=== PATIENT | female | born 1955 | race African-American/Black ===

== ENCOUNTER 2017-04-22 21:53 | Inpatient (IN) | payer OTHER ==
[2017-04-22] VITALS (8 sets, daily range): BP systolic 149–189; BP diastolic 70–128; PULSE 78–87; RESP 16–20; TEMP 97.7; O2SAT 95–100
[~2017-04-22 21:53] MED LIST: ALBU6.7H INH; ASPI81 PO; ATOR20TA42 PO; CETI5TAB2 PO; CROM5.2S; D32000TA PO; HYDR-2768 PO; HYDR-3533 PO; ISOS30TA3 PO; KCL20 PO; NITR0.4S SL; PULM200A INH; TAB-TAB PO; VERA120T3 PO; ZOFR4TAB3 SL
[2017-04-22] MEDS ORDERED: IOHEXOL 350 MG/ML 10 ML VIAL (for RAD DIAG) IVCONTRAST ONE (21:54)
[2017-04-22] MEDS ORDERED: SODIUM CHLOR 0.9% 1000 ML INJ 1,000 ML IV ONE (22:10)
[2017-04-22] MEDS ORDERED: POTA-163 PO (22:15)
[2017-04-22] MEDS ORDERED: VERA1CAP PO (22:15)
[2017-04-22] MEDS ORDERED: PULM90IN INH (22:15)
[2017-04-22] MEDS ORDERED: NITR0.4S SL (22:15)
[2017-04-22] MEDS ORDERED: ATOR20TA15 PO (22:15)
[2017-04-22] MEDS ORDERED: HYDR25TA5 PO (22:15)
[2017-04-22] MEDS ORDERED: ISOS30TA3 PO (22:15)
[2017-04-22] MEDS ORDERED: ALBUAER3 INH (22:15)
[2017-04-22] MEDS ORDERED: CHOL5000 PO (22:18)
[2017-04-22] MEDS ORDERED: ASPI81CH37 CHEW (22:18)
[2017-04-22] MEDS ORDERED: MULTTAB67 PO (22:18)
[2017-04-22] MEDS ORDERED: LORA1CHW CHEW (22:18)
--- NOTE | 2017-04-22 22:19 | PD ---
HPI Chief Complaint: Neuro Symptoms/ Deficits Time Seen by Provider: 22:04 Travel History International Travel<30 days: No Contact w/Intl Traveler<30days: No Traveled to known affect area: No History of Present Illness HPI The patient is a 61 year old female who presents to the [facility] [address] emergency department with a history of sudden onset of neurologic symptoms that began at 9:30 PM today. The patient's son accompanies her to this emergency department visit and reports that around 9:30 PM she began to have difficulty speaking, tingling in the left side of her face and left upper and left lower extremity weakness. She denies any prior history of stroke. She denies taking any blood thinners other than a low-dose aspirin daily. She did take her low- dose aspirin today. She denies having any changes in her blood pressure medication. She has been taking her blood pressure medication on a regular basis. She denies any history of irregular heartbeat or atrial fibrillation. On review of systems otherwise, the patient denies any recent fevers, cough, congestion, neck pain, chest pain, shortness of breath, abdominal pain, vomiting , diarrhea, urinary symptoms, vision changes, or difficulty with word finding ability. [facility] Past Medical History Narrative Medical The patient's past medical history is significant for coronary artery vasospasm , hyperlipidemia, hypertension, arthritis, asthma. Arthritis: Yes Asthma: Yes Heart Rhythm Problems: Yes Cardiac Catheterization: Yes (2002) Cardiovascular Problems: Yes (spasm) High Cholesterol: Yes Diminished Hearing: No Hypertension: Yes Respiratory: Yes (asthma) ?: Unknown Menopausal: Yes Past Surgical History Narrative Surgical The patient's past surgical history is significant for a hysterectomy. Hysterectomy: Yes Tonsillectomy: Yes Social History Alcohol Use: Yes ([facility]) Tobacco Use: No Substance Use: No Allergies-Medications (Allergen,Severity, Reaction): Coded Allergies: hydrocodone (Unverified Allergy, Intermediate, Nausea/Vomiting, 04/22/17) isosorbide (Unverified Allergy, Unknown, 04/22/17) DENIES naproxen (Unverified Allergy, Unknown, UNKNOWN, PT FORGETS, 04/22/17) Reported Meds & Prescriptions Reported Meds & Active Scripts Active Reported Claritin (Loratadine) 5 Mg Chew 5 Mg CHEW DAILY PRN Aspirin Low Dose (Aspirin) 81 Mg Chew 81 Mg CHEW DAILY Vitamin D3 (Cholecalciferol) 5,000 Unit Cap 5,000 Units PO DAILY Multiple Vitamin 1 Tab 1 Tab PO DAILY Proair Hfa 8.5 GM Inh (Albuterol Sulfate) 90 Mcg/Act Aer 2 Puff INH Q4-6H PRN 108 mcg/actuation Pulmicort Flexhaler (Budesonide Powder Inh) 90 Mcg/Act Inhp 90 Mcg INH Q12HR Nitrostat SL (Nitroglycerin) 0.4 Mg Subl 0.4 Mg SL DIRECTED PRN 1 tablet under the tongue as needed for chest pain. Repeat every 5 minutes for a total of 3 DOSES or call 911 if NO relief. Isosorbide Mononitrate ER (Isosorbide Mononitrate) 30 Mg Luc 30 Mg PO DAILY Potassium Chloride ER (Potassium Chloride) 20 Meq Tab 20 Meq PO BID Hydrochlorothiazide 25 Mg Tab 25 Mg PO DAILY Atorvastatin (Atorvastatin Calcium) 20 Mg Tab 20 Mg PO HS Verelan PM 24 HR (Verapamil HCl) 100 Mg Cap 180 Mg PO HS Review of Systems Except as stated in HPI: all other systems reviewed are Neg General / Constitutional: No: Fever Eyes: No: Visual changes HENT: No: Headaches Cardiovascular: No: Chest Pain or Discomfort Respiratory: No: Shortness of Breath Gastrointestinal: No: Abdominal Pain Genitourinary: No: Dysuria Musculoskeletal: No: Pain Skin: No Rash Neurologic: Positive: Weakness, Focal Abnormalities, Slurred Speech, Sensory Disturbance, No: Change in Mentation Psychiatric: No: Depression Endocrine: No: Polydipsia Hematologic/Lymphatic: No: Easy Bruising Physical Exam Narrative General: The patient is a well-developed well-nourished female in no acute distress. Head and Neck exam: Head is normocephalic atraumatic. Eyes: EOMI, pupils are equal round and reactive to light. Nose: Midline septum with pink mucous membranes Mouth: Dentition unremarkable. Moist mucus membranes. Posterior oropharynx is not erythematous. No tonsillar hypertrophy. Uvula midline. Airway patent. Neck: No palpable lymphadenopathy. No nuchal rigidity. No thyromegaly. Cardiovascular: Regular rate and rhythm without murmurs, gallops, or rubs. No pulse deficit to the extremities on simultaneous auscultation and palpation of her radial artery. Lungs: Clear to auscultation bilaterally. No wheezes, rhonchi, or rales. Abdomen: Soft, without tenderness to palpation in all 4 quadrants of the abdomen. No guarding, rebound, or rigidity. Normal bowel sounds are audible. No tenderness on palpation of McBurney's point. Extremities: No clubbing, cyanosis, or edema. 2+ pulses in all 4 extremities. No calf tenderness on palpation. Back: No costovertebral angle tenderness to palpation. Neurologic Exam: No visual field deficits. The patient has no difficulty naming various objects around the room although she does experience slurred speech. She has a mild left-sided facial droop. She has strength on examination of the left upper extremity that is 4 over 5, left lower extremity is 3 over 5. The patient reports having diminished sensation on palpation of the left side of her face, left upper and left lower extremity. The patient is oriented to person, place, time, and situation. The patient is able to easily follow commands. Skin Exam: No rash noted. Intact skin that is warm and dry. Data Data Last Documented VS Vital Signs Date Time Temp Pulse Resp B/P (MAP) Pulse Ox O2 Delivery O2 Flow Rate FiO2 04/22/17 23:30 87 149/70 (96) 100 Nasal Cannula 2.00 04/22/17 23:15 16 04/22/17 22:[address] Brain W/O Iv Contrast(Rout) (04/22/17 ) Diet Npo (04/23/17 Breakfast) Activity Bed Rest (04/22/17 ) Electrocardiogram (04/22/17 ) I-Stat Creatinine (04/22/17 22:10) I-Stat Profile (04/22/17 22:10) Prothrombin Time / Inr (Pt) (04/22/17 22:10) Act Partial Throm Time (Ptt) (04/22/17 22:10) Complete Blood Count With Diff (04/22/17 22:10) Fibrinogen (04/22/17 22:10) Creatine Kinase (Cpk) (04/22/17 22:10) Troponin I (04/22/17 22:10) Ua Includes Microscopic (04/22/17 22:10) Drug Screen, Random Urine (04/22/17 22:10) Type And Screen (04/22/17 22:10) Cta Brain W Iv Contrast W 3d (04/22/17 22:10) Cta Neck W Iv Contrast W 3d (04/22/17 22:10) Consult Neurology (04/22/17 ) Blood Glucose (04/22/17 22:10) Ecg Monitoring (04/22/17 22:10) Neuro Checks Q2HX12,Q4H (04/22/17 22:10) Nursing Bedside Swallow Assess .ONCE (04/22/17 22:10) Iv Access Insert/Monitor (04/22/17 22:10) NPO (04/22/17 22:10) Oximetry (04/22/17 22:10) Oxygen Administration (04/22/17 22:10) Sodium Chlor 0.9% 1000 Ml Inj (Ns 1000 M (04/22/17 22:10) Resp Oxygen Nathan C Titrat 1-4 L (04/22/17 22:10) Cath For Specimen (04/22/17 22:10) Nicardipine Inj (Cardene Inj) (04/22/17 22:30) Mri Brain W&W/O Contrast (04/22/17 ) Echo 2d Comp With Doppler (04/22/17 ) Lipid Profile (04/22/17 23:17) Ct Brain W/O Iv Contrast(Rout) (04/23/17 23:00) Iohexol 350 Inj (Omnipaque 350 Inj) (04/22/17 21:54) Admit Order (Ed Use Only) (04/22/17 23:41) Labs Laboratory Tests Test 04/22/17 22:10 04/22/17 23:00 White Blood Count 9.2 TH/MM3 Red Blood Count 4.45 MIL/MM3 Hemoglobin 13.5 GM/DL Bedside Hemoglobin 13.9 G/DL Hematocrit 40.6 % Bedside Hematocrit 41.0 % Mean Corpuscular Volume 91.2 FL Mean Corpuscular Hemoglobin 30.4 PG Mean Corpuscular Hemoglobin Concent 33.3 % Red Cell Distribution Width 15.5 % Platelet Count 207 TH/MM3 Mean Platelet Volume 9.1 FL Neutrophils (%) (Auto) 53.2 % Lymphocytes (%) (Auto) 18.7 % Monocytes (%) (Auto) 7.8 % Eosinophils (%) (Auto) 19.7 % Basophils (%) (Auto) 0.6 % Neutrophils # (Auto) 4.9 TH/MM3 Lymphocytes # (Auto) 1.7 TH/MM3 Monocytes # (Auto) 0.7 TH/MM3 Eosinophils # (Auto) 1.8 TH/MM3 Basophils # (Auto) 0.1 TH/MM3 CBC Comment DIFF FINAL Differential Comment Prothrombin Time 11.0 SEC Prothromb Time International Ratio 1.0 RATIO Activated Partial Thromboplast Time 29.9 SEC Fibrinogen 420 mg/dL Bedside Sodium 142 MMOL/L Bedside Potassium 3.4 MMOL/L Bedside Chloride 103 MMOL/L Bedside Blood Urea Nitrogen 12 MG/DL Bedside Creatinine 0.8 MG/DL Bedside Glucose 111 MG/DL Total Creatine Kinase 187 U/L Troponin I LESS THAN 0.02 NG/ML Triglycerides Level 148 MG/DL Cholesterol Level 132 MG/DL LDL Cholesterol 49 MG/DL HDL Cholesterol 53.2 MG/DL Cholesterol/HDL Ratio 2.48 RATIO Urine Color LIGHT-YELLOW Urine Turbidity HAZY Urine pH 8.0 Urine Specific [place] 1.012 Urine Protein NEG mg/dL Urine Glucose (UA) NEG mg/dL Urine Ketones NEG mg/dL Urine Occult Blood NEG Urine Nitrite NEG Urine Bilirubin NEG Urine Urobilinogen LESS THAN 2.0 MG/DL Urine Leukocyte Esterase NEG Urine RBC 1 /hpf Urine WBC LESS THAN 1 /hpf Urine Amorphous Sediment RARE Urine Opiates Screen NEG Urine Barbiturates Screen NEG Urine Amphetamines Screen NEG Urine Benzodiazepines Screen NEG Urine Cocaine Screen NEG Urine Cannabinoids Screen NEG MDM Medical Screen Exam Complete: Yes Emergency Medical Condition: Yes Medical Record Reviewed: Yes EKG Prior to Arrival: Yes Differential Diagnosis Ischemic stroke, versus hemorrhagic stroke, versus intracranial mass, versus hypoglycemia Narrative Course During the course of the patients emergency department visit, the patients history, examination, and differential diagnosis were reviewed with the patient. The patient had IV access obtained and blood work sent for analysis. The patient was placed on a bus monitor with oximetry and blood pressure monitoring. An ECG was done on arrival. The patient's ECG shows a sinus rhythm heart rate of 84, no acute ST segment elevation. A stroke alert was called. I spoke to Dr. Tom regarding this patient's case. He agreed that the patient was a candidate for TPA. While in the family Dr. Tom I did receive a phone call back from the radiologist who is in the process of reading the patient's initial CT. He reports that the CT is negative for acute hemorrhage. The patient will undergo CTA of the head and neck. I then followed the patient down to CT to discuss administration of TPA. The patient was initially provided normal saline at 70 mL per hour. The patient was placed with the head of the bed flat. The patient's initial blood pressure was elevated. The patient will be started on Cardene after further discussion with Dr. Tom. Goals for the patient's blood pressure are to obtain the patient's blood pressure at less than 180/90. Risks and benefits for tPA were discussed with the patient. Risks including hemorrhage, including potentially fatal GI and intracranial bleeding which can result in long-term serious disability or were discussed. Benefits including resolution of symptoms were discussed. The patient consented verbally to proceed with therapy. A Patiño catheter was placed to gravity prior to the patient having tPA administered. The patients laboratory studies were reviewed and remarkable for a white count of 9.2, hemoglobin 13.5, platelets 207 with 19.7 eosinophils, i-STAT reveals a creatinine of 0.8, troponin I is 0.02, CPK 187, PT 11, PTT 29.9, fibrinogen 420 , urine drug screen is negative, urinalysis is unremarkable. Radiology studies were reviewed and remarkable for CT scan of the brain without contrast showed no acute abnormality. CTA of the neck showed a normal examination for a patient of this age according to the reading radiologist, CT a scan of the brain showed a normal examination for a patient of this age. The patients results were discussed with the patient, including the plan of care. I explained that further testing and/ or monitoring is indicated based on the patients history, examination, and/ or laboratory findings. Therefore, I recommended admission for additional evaluation. The patient expressed understanding and was agreeable with this plan. The patient was admitted to the hospital in guarded condition and sent to a bed under the care of the call center assistant service. Critical Care Narrative Aggregate critical care time was 40 minutes. Time to perform other separately billable procedures was not included in the critical care time. My time did not include minutes spent treating any other patients simultaneously or on activities that did not directly contribute to the patient's treatment. The services I provided to this patient were to treat and/or prevent clinically significant deterioration that could result in: Progression of neurologic disability, versus intracranial hemorrhage, versus respiratory failure I provided critical care services requiring my management, as noted below: Chart data review, documentation time, medication orders and management, vital sign assessments/reviewing monitor data, ordering and reviewing lab tests, ordering and interpreting/reviewing x-rays and diagnostic studies, care of the patient and discussion of the patient with the admitting physicians. Stroke Alert NIHSS NIH Stroke Scale Result: 6 NIHSS Time Completed: 22:18 Physician Communication Physician Communication The patient's case was discussed with Dr. Tom at approximately 10:22 PM. He agreed the patient was a candidate for TPA. At approximately 10:25 PM, the radiologist informed me that the CT scan of the brain was negative. I discussed with him that we will proceed with a CTA of the neck and a CTA of the brain. The patient's case was also discussed with Dr. Parekh who did agree to admit the patient to the intensive care unit. Diagnosis Diagnosis: Primary Impression: Ischemic stroke Admitting Physician Requests: Admit Barbara Burger MD Apr 22, 2017 22:19
--- NOTE | 2017-04-22 22:24 | RADRPT ---
EXAM DATE/TIME: 04/22/2017 22:14 [facility] COMPARISON: No previous studies available for comparison. INDICATIONS : Stroke Alert. Slurred speech with left sided weakness. RADIATION DOSE: 34.63 CTDIvol (mGy) MEDICAL HISTORY : Hypertension. SURGICAL HISTORY : None. ENCOUNTER: Initial ACUITY: 1 day PAIN SCALE: 0/10 LOCATION: cranial TECHNIQUE: Multiple contiguous axial images were obtained of the head. Using automated exposure control and adj ustment of the mA and/or kV according to patient size, radiation dose was kept as low as reasonably a chievable to obtain optimal diagnostic quality images. DICOM format image data is available electro nically for review and comparison. FINDINGS: CEREBRUM: The ventricles are normal. No evidence of midline shift, mass lesion, hemorrhage or acute infarction . No extra-axial fluid collections are seen. POSTERIOR FOSSA: The cerebellum and brainstem demonstrate no acute finding. The 4th ventricle is midline. The cerebe llopontine angle is unremarkable. EXTRACRANIAL: The visualized sinuses are clear. SKULL: The calvaria is intact. No evidence of skull fracture. CONCLUSION: Negative noncontrast head CT. The above findings were telephoned to Dr. Burger on 04/22/2017 at 10: 21 PM. Bakari Natarajan MD on April 22, 2017 at 22:19 Board Certified Radiologist. This report was verified electronically.
[2017-04-22] MEDS ORDERED: niCARdipine INJ 25 MG in SODIUM CHLOR 0.9% 250 ML INJ 250 ML IV ONE (22:30)
[2017-04-22 22:35] LABS: AUTOMATED NEUTROPHIL # 4.9 TH/MM3 (1.8-7.7); BASOPHIL # 0.1 TH/MM3 (0-0.2); BASOPHIL % 0.6 % (0.0-2.0); EOSINOPHIL # 1.8 TH/MM3 (0-0.4); EOSINOPHIL % 19.7 % (0.0-4.0); HEMATOCRIT 40.6 % (35.0-46.0); HEMO FLAGS DIFF FINAL; LYMPH % 18.7 % (9.0-44.0); LYMPHOCYTE # 1.7 TH/MM3 (1.0-4.8); MEAN CELL VOLUME 91.2 FL (80.0-100.0); MEAN CORPUSCULAR HEMOGLOBIN 30.4 PG (27.0-34.0); MEAN CORPUSCULAR HGB CONC 33.3 % (32.0-36.0); MONO % 7.8 % (0.0-8.0); NEUT % 53.2 % (16.0-70.0); PLATELET COUNT 207 TH/MM3 (150-450); RED BLOOD COUNT 4.45 MIL/MM3 (4.00-5.30); RED CELL DISTRIBUTION WIDTH 15.5 % (11.6-17.2); WHITE BLOOD COUNT 9.2 TH/MM3 (4.0-11.0)
[2017-04-22 22:36] LABS: I-STAT POTASSIUM 3.4 MMOL/L (3.5-4.9); I-STAT SODIUM 142 MMOL/L (138-146)
[2017-04-22 22:49] LABS: APTT (PATIENT) 29.9 SEC (24.3-30.1)
[2017-04-22 23:00] LABS: CREATINE KINASE 187 U/L (26-192)
--- NOTE | 2017-04-22 23:30 | RADRPT ---
EXAM DATE/TIME: 04/22/2017 23:05 [facility] COMPARISON: No previous studies available for comparison. INDICATIONS : Stroke Alert. Slurred speech and left sided weakness. IV CONTRAST: 80 cc Omnipaque 350 (iohexol) IV RADIATION DOSE: 28.11 CTDIvol (mGy) ; Combined studies MEDICAL HISTORY : Hypertension. SURGICAL HISTORY : None. ENCOUNTER: Initial ACUITY: 1 day PAIN SCALE: 0/10 LOCATION: cranial TECHNIQUE: Volumetric scanning was performed using a multi-row detector CT scanner. The data was post processed with a variety of visualization algorithms including full volume maximum intensity projection, multi -planar sliding thin slab reformation, curved planar reformation, and surface rendering techniques. Using automated exposure control and adjustment of the mA and/or kV according to patient size, radiat ion dose was kept as low as reasonably achievable to obtain optimal diagnostic quality images. DICO M format image data is available electronically for review and comparison. FINDINGS: There is excellent visualization of the major intracranial arteries out to the second-order branch ve ssels. There is no evidence for aneurysm, vessel truncation or stenosis, and no evidence for vascula r malformation. CONCLUSION: Normal examination for a patient of this age. Joel Shea MD on April 22, 2017 at 23:23 Board Certified Radiologist. This report was verified electronically.
--- NOTE | 2017-04-22 23:39 | RADRPT ---
EXAM DATE/TIME: 04/22/2017 23:05 [facility] COMPARISON: No previous studies available for comparison. INDICATIONS : Stroke Alert. Slurred speech with left sided weakness. IV CONTRAST: 80 cc Omnipaque 350 (iohexol) IV ; Cumulative dose for multiple exams. RADIATION DOSE: 28.11 CTDIvol (mGy) ; Combined studies MEDICAL HISTORY : Hypertension. SURGICAL HISTORY : None. ENCOUNTER: Initial ACUITY: 1 day PAIN SCALE: 0/10 LOCATION: neck Elevated flow velocities and ICA/CCA ratios have been found to correlate with increased degrees of vessel stenosis, calculated as percentage of diameter relative to a normal segment of distal ICA/CCA. TECHNIQUE: Volumetric scanning was performed using a multirow detector CT scanner. The data was post processed with a variety of visualization algorithms including full-volume maximum intensity projection, multip lanar sliding thin-slab reformation, curved-planar reformation, and surface-rendering techniques. Us ing automated exposure control and adjustment of the mA and/or kV according to patient size, radiatio n dose was kept as low as reasonably achievable to obtain optimal diagnostic quality images. DICOM f ormat image data is available electronically for review and comparison. FINDINGS: AORTIC ARCH: There is a three-vessel origin of the great vessels from the aorta. No evidence of ostial narrowing. RIGHT CAROTID: The common carotid artery is intact. The carotid bulb has a normal configuration without ulceration o r narrowing. The internal carotid artery lumen is smooth without stenosis. The external carotid monico ry is intact. LEFT CAROTID: The common carotid artery is intact. The carotid bulb has a normal configuration without ulceration or narrowing. The internal carotid artery lumen is smooth without stenosis. The external carotid ar harmony is intact. VERTEBRALS: The vertebral arteries have a symmetric diameter. No stenotic lesions are seen. CONCLUSION: Normal examination for a patient of this age. Joel Shea MD on April 22, 2017 at 23:36 Board Certified Radiologist. This report was verified electronically.
[2017-04-22 23:45] LABS: BLOOD, URINE NEG (NEG); GLUCOSE,URINE NEG (NEG); KETONE, URINE NEG (NEG); NITRITE,URINE NEG (NEG); URINE COLOR LIGHT-YELLOW (YELLW/STRAW)
[2017-04-23] VITALS (14 sets, daily range): BP systolic 143–165; BP diastolic 68–78; PULSE 70–88; RESP 12–22; TEMP 97.9–98.8; O2SAT 96–99
[2017-04-23 00:15] LABS: HDL CHOLESTEROL 53.2 MG/DL (40.0-60.0)
--- NOTE | 2017-04-23 00:23 | HHI.HP ---
HPI Service Critical Care Medicine Primary Care Physician Unknown Admission Diagnosis Stroke alert s/p TPA Diagnosis: Travel History International Travel<30 Days: No Contact w/Intl Traveler <30 Da: No Traveled to Known Affected Are: No History of Present Illness 61 yo Right hand dominant AAF with medical history of hypertension and hyperlipidemia who presented to [facility] with acute onset of aphasia, L sided facial tingling, and L hemiparesis at 9:30 pm on 04/22. No fall or seizure. She was on ASA but no anticoagulants. Stroke alert was called. CT brain was negative. NIH stroke score 6. TPA was initiated at 2300 on 04/22. She denies any prior issues with bleeding. TPA has been completed upon my evaluation and patient states her speech and L sided weakness is significantly improved. Denies headache, neck pain, chest pain, GI bleeding, nausea, vomiting, abdominal pain. Remainder review of systems negative Past Family Social History Allergies: Coded Allergies: hydrocodone (Unverified Allergy, Intermediate, Nausea/Vomiting, 04/22/17) isosorbide (Unverified Allergy, Unknown, 04/22/17) DENIES naproxen (Unverified Allergy, Unknown, UNKNOWN, PT FORGETS, 04/22/17) Past Medical History Hypertension Hyperlipidemia Asthma Allergic rhinitis Coronary spasm. Her teacher [facility] is Dr. Cortez. Past Surgical History section 2 Partial hysterectomy Tonsillectomy Cardiac catheterization 02/[address] Cortez. Impression was coronary spasm. Reported Medications Claritin 5 mg by mouth as needed for allergies Albuterol 2 puffs inhaled q4-6hr Atorvastatin 20 mill grams by mouth daily at bedtime Isosorbide mononitrate 30 g by mouth daily Nitroglycerin as needed for chest pain Verapamil 180 mg by mouth daily at bedtime Aspirin 81 mg daily Potassium chloride 20 mEq by mouth twice a day HCTZ 25 mg daily Budesonide 90 g inhaled every 12 hours Vitamin D3 5000 units by mouth daily Multivitamin one by mouth daily Family History There is no family history of stroke Father had a myocardial infarction in his 50s and at age 61 Mother had uterine cancer and at age 92. She had had a 2 vessel CABG Social History Lifetime nonsmoker Drink alcohol occasionally No illicit drug use She has 2 adult children Works as a peer health promoter Physical Exam Vital Signs Vital Signs Date Time Temp Pulse Resp B/P (MAP) Pulse Ox O2 Delivery O2 Flow Rate FiO2 04/23/17 00:00 87 16 143/69 (93) 99 Nasal Cannula 2.00 04/22/17 23:45 82 16 154/78 (103) 99 Nasal Cannula 2.00 04/22/17 23:30 87 149/70 (96) 100 Nasal Cannula 2.00 04/22/17 23:22 Nasal Cannula 2.00 04/22/17 23:22 97 Room Air 04/22/17 23:15 85 16 160/76 (104) 96 Room Air 04/22/17 23:02 96 04/22/17 23:00 84 189/88 (121) 95 Room Air 04/22/17 22:45 84 187/80 04/22/17 22:23 78 16 187/89 (121) 96 Room Air 04/22/17 22:02 97.7 81 20 179/128 (145) 96 Physical Exam GENERAL: Well-nourished, well-developed patient who is laying flat in ED [facility]. SKIN: Warm and dry. HEAD: Atraumatic. Normocephalic. EYES: Pupils equal and round, 3 mm reactive bilaterally. No scleral icterus. No injection or drainage. ENT: No nasal bleeding or discharge. Mucous membranes pink and moist. NECK: Trachea midline. No JVD. CARDIOVASCULAR: Regular rate and rhythm. No murmurs rubs or gallops. RESPIRATORY: No accessory muscle use. Clear to auscultation. Breath sounds equal bilaterally. On 2 L nasal cannula. GASTROINTESTINAL: Abdomen soft, non-tender, nondistended. Bowel sounds present. MUSCULOSKELETAL: Extremities without clubbing, cyanosis, or edema. NEUROLOGICAL: Awake and alert, oriented 4. Speech is a little slow but is not slurred. Normal naming. No facial droop. Normal tongue protrusion. Extraocular movements intact. No obvious cranial nerve deficits. She reports decreased sensation to soft touch in left upper and left lower extremities. Strength 5/5 throughout the right. Strength 4/5 triceps on the left otherwise 5 /5 on LUE. 5/5 L foot plantar/dorsiflexion. 4+/5 L hip flexor and hamstring. Patellar DTRs are 2+ bilaterally. No abnormal response to Babinski. Laboratory Laboratory Tests Test 04/22/17 22:10 04/22/17 23:00 White Blood Count 9.2 Red Blood Count 4.45 Hemoglobin 13.5 Bedside Hemoglobin 13.9 Hematocrit 40.6 Bedside Hematocrit 41.0 Mean Corpuscular Volume 91.2 Mean Corpuscular Hemoglobin 30.4 Mean Corpuscular Hemoglobin Concent 33.3 Red Cell Distribution Width 15.5 Platelet Count 207 Mean Platelet Volume 9.1 Neutrophils (%) (Auto) 53.2 Lymphocytes (%) (Auto) 18.7 Monocytes (%) (Auto) 7.8 Eosinophils (%) (Auto) 19.7 Basophils (%) (Auto) 0.6 Neutrophils # (Auto) 4.9 Lymphocytes # (Auto) 1.7 Monocytes # (Auto) 0.7 Eosinophils # (Auto) 1.8 Basophils # (Auto) 0.1 CBC Comment DIFF FINAL Differential Comment Prothrombin Time 11.0 Prothromb Time International Ratio 1.0 Activated Partial Thromboplast Time 29.9 Fibrinogen 420 Bedside Sodium 142 Bedside Potassium 3.4 Bedside Chloride 103 Bedside Blood Urea Nitrogen 12 Bedside Creatinine 0.8 Bedside Glucose 111 Total Creatine Kinase 187 Troponin I LESS THAN 0.02 Triglycerides Level 148 Cholesterol Level 132 LDL Cholesterol 49 HDL Cholesterol 53.2 Cholesterol/HDL Ratio 2.48 Urine Color LIGHT-YELLOW Urine Turbidity HAZY Urine pH 8.0 Urine Specific [place] 1.012 Urine Protein NEG Urine Glucose (UA) NEG Urine Ketones NEG Urine Occult Blood NEG Urine Nitrite NEG Urine Bilirubin NEG Urine Urobilinogen LESS THAN 2.0 Urine Leukocyte Esterase NEG Urine RBC 1 Urine WBC LESS THAN 1 Urine Amorphous Sediment RARE Urine Opiates Screen NEG Urine Barbiturates Screen NEG Urine Amphetamines Screen NEG Urine Benzodiazepines Screen NEG Urine Cocaine Screen NEG Urine Cannabinoids Screen NEG Result Diagram: 04/22/170 Caprini VTE Risk Assessment Caprini VTE Risk Assessment: Mod/High Risk (score >= 2) VTE Pharm Contraindication: s/p tpa Caprini Risk Assessment Model Point Value = 1 Point Value = 2 Point Value = 3 Point Value = 5 Age 41-60 Minor surgery BMI > 25 kg/m2 Swollen legs Varicose veins or History of unexplained or recurrent spontaneous Oral contraceptives or hormone replacement Sepsis (< 1 month) Serious lung disease, including pneumonia (< 1 month) Abnormal pulmonary function Acute myocardial infarction Congestive heart failure (< 1 month) History of inflammatory bowel disease Medical patient at bed rest Age 61-74 Arthroscopic surgery Major open surgery (> 45 min) Laparoscopic surgery (> 45 min) Malignancy Confined to bed (> 72 hours) Immobilizing plaster cast Central venous access Age >= 75 History of VTE Family history of VTE Factor V Leiden Prothrombin [id number] Lupus anticoagulant Anticardiolipin antibodies Elevated serum homocysteine Heparin-induced thrombocytopenia Other congenital or acquired thrombophilia Stroke (< 1 month) Elective arthroplasty Hip, pelvis, or leg fracture Acute spinal cord injury (< 1 month) Prophylaxis Regimen Total Risk Factor Score Risk Level Prophylaxis Regimen 0-1 Low Early ambulation 2 Moderate Order ONE of the following: *Sequential Compression Device (SCD) *Heparin 5000 units SQ BID 3-4 Higher Order ONE of the following medications: *Heparin 5000 units SQ TID *Enoxaparin/Lovenox 40 mg SQ daily (WT < 150 kg, CrCl > 30 mL/min) *Enoxaparin/Lovenox 30 mg SQ daily (WT < 150 kg, CrCl > 10-29 mL/min) *Enoxaparin/Lovenox 30 mg SQ BID (WT < 150 kg, CrCl > 30 mL/min) AND/OR *Sequential Compression Device (SCD) 5 or more Highest Order ONE of the following medications: *Heparin 5000 units SQ TID (Preferred with Epidurals) *Enoxaparin/Lovenox 40 mg SQ daily (WT < 150 kg, CrCl > 30 mL/min) *Enoxaparin/Lovenox 30 mg SQ daily (WT < 150 kg, CrCl > 10-29 mL/min) *Enoxaparin/Lovenox 30 mg SQ BID (WT < 150 kg, CrCl > 30 mL/min) AND *Sequential Compression Device (SCD) Assessment and Plan Problem List: (1) HTN (hypertension) ICD Code: I10 - Essential (primary) hypertension Status: Chronic (2) HLD (hyperlipidemia) ICD Code: E78.5 - Hyperlipidemia, unspecified Status: Chronic (3) History of coronary vasospasm ICD Code: Z86.79 - Personal history of other diseases of the circulatory system (4) Hypokalemia ICD Code: E87.6 - Hypokalemia Status: Acute (5) Asthma ICD Code: J45.909 - Unspecified asthma, uncomplicated Status: Chronic (6) Ischemic stroke ICD Code: I63.9 - Cerebral infarction, unspecified Status: Acute Assessment and Plan NEURO: Acute ischemic stroke CT brain 04/23 - negative CTA Neck and brain 04/23negative MRI brain pending TPA started 2300 on 04/22 No antiplatelets or anticoagulants for 24 hours. Lipid panel within normal limits. Urine drug screen negative 2-D echo pending Monitor telemetry Neurology following, Dr. Tom. PT and OT consult. RESP: Asthma Allergic rhinitis Albuterol every 2 hours as needed for wheezing. Budesonide 0.5 twice a day CV: Hypertension Hyperlipidemia History of coronary vasospasm with prior negative cardiac catheterization 02/2003 HCTZ 25 mg by mouth daily, atorvastatin 20 mg by mouth daily at bedtime, verapamil 180 mg by mouth daily at bedtime. Hold aspirin 81 mg daily for 24 hours post TPA Monitor blood pressure. Labetalol 10 mg IV every 4 hours as needed for systolic blood pressure greater than 185 or diastolic blood pressure greater than 110. Nicardipine if needed to maintain these BP targets. GI: Nothing by mouth. Bedside swallow eval and will obtain speech therapy consult if needed. FEN/RENAL: Hypokalemia Patiño in place. Monitor intake and output. Monitor electrolytes and replace when indicated. Replace potassium 20 mEq IV now 0.9 NaCl with 20 mEq of KCl per liter at 80 mL per hour I D: Monitor for signs and symptoms of infection HEME: Eosinophilia Monitor for bleeding status post TPA. ENDO: Euglycemic PROPH: SCDs for DVT prophylaxis. No pharmacology DVT prophylaxis for 24 hours after TPA. Famotidine 20 mg IV every 12 hours for stress ulcer prophylaxis. ACCESS: Peripheral IV providing adequate access at this time. Patient and her son were updated at bedside. Questions were answered. Patient will be admitted to [facility] for close hemodynamic monitoring and monitoring for complication of TPA. Level III H&P Charisma Parekh MD Apr 23, 2017 00:22
[2017-04-23] MEDS ORDERED: CHLORHEXIDINE GLUCONATE 2 % 1 PACK (2 CLOTHS) TOP PRN (01:00)
[2017-04-23] MEDS ORDERED: MISCELLANEOUS NURSING INFORMATION XX SCH (01:00)
[2017-04-23] MEDS ORDERED: SODIUM CHLORIDE 0.9% FLUSH 10 ML FLUSH IV FLUSH PRN (01:00)
[2017-04-23] MEDS ORDERED: POTASSIUM CHLOR 20 MEQ PREMIX 100 ML IV ONE (01:00)
[2017-04-23] MEDS ORDERED: ONDANSETRON HCL 4 MG/2 ML VIAL IV PUSH PRN (01:00)
[2017-04-23] MEDS ORDERED: LABETALOL HCL 100 MG/20 ML VIAL IV PUSH PRN (01:15)
[2017-04-23] MEDS ORDERED: niCARdipine INJ 25 MG in SODIUM CHLOR 0.9% 250 ML INJ 240 ML IV PRN (01:15)
[2017-04-23] MEDS: NS + KCL 20 MEQ INJ 1,000 ML IV SCH ×3 (01:53→15:24)
[2017-04-23] MEDS: CHLORHEXIDINE GLUCONATE 2 % 1 PACK (2 CLOTHS) TOP SCH (03:22)
--- NOTE | 2017-04-23 07:26 | MB ---
cc: CHUCKIE THORNTON M.D. DATE OF CONSULTATION 04/22/[address] Burger REASON FOR CONSULTATION Stroke alert HISTORY OF PRESENT ILLNESS Ms. Horne is a 61-year-old woman who was in her usual state of health until 09:30 today when she acutely developed weakness on the left side involving the left arm and left leg. She had tingling on the face as well as the arm and leg as well, difficulty speaking with slurred speech, but not aphasia. She presented to the ER, was very hypertensive initially, NIH stroke scale was 6. PAST MEDICAL HISTORY 1. Hysterectomy 2. Tonsillectomy 3. Hypercholesterolemia 4. Hypertension MEDICATIONS AT HOME 1. Claritin 2. Aspirin 81 mg daily 3. Vitamin D3 4. Multivitamin 5. ProAir inhaler 6. Pulmicort 7. Nitrostat 8. Isosorbide 30 mg daily 9. Potassium chloride 20 mEq b.i.d. 10. Hydrochlorothiazide 25 mg daily 11. Atorvastatin 20 mg daily 12. Verelan 100 mg tablets ALLERGIES HYDROCODONE ISOSORBIDE NEUROLOGIC EXAMINATION Initial blood pressure 179/128. She was placed on a Cardene drip and brought the pressure down to 187/89, pulse 78, she is in sinus rhythm, respirations 16, temperature 97 degrees. Higher cortical function, the patient is alert. Speech is dysarthric. Cranial nerves, slight left facial droop. On motor exam, she is weak in the left arm and left leg rated at about 3/5 for the arm and leg with normal strength on the right. Reflexes are symmetric. CT of the brain, no acute changes present. LABORATORY DATA White count 9200, hemoglobin 13.5, hematocrit 40.6% platelet count 207,000, PT 11, INR 1, APTT 29.9. Sodium is 142, potassium 3.4, chloride 103, BUN is 12, creatinine 0.8, glucose 111, CPK 187. Telemetry, normal sinus rhythm. IMPRESSION Acute right hemisphere stroke. RECOMMENDATIONS The patient is a candidate for IV TPA. I have discussed this with Dr. Burger on the telephone prior to my arrival in the ER and the TPA has already been started. A CT angiogram was obtained as well following starting of the IV TPA. This was done of the head and neck and the results are currently pending. I discussed the case with Dr. Nixon Thomas of interventional radiology who is going to review the CT angiogram as soon as the images are available. We will follow the post TPA protocol as well with no antiplatelets, no anticoagulants for at least 24 hours post TPA. Further evaluation with an MRI and MRA of the brain, echocardiogram and lipid panel will be obtained as well. The patient will be admitted to the ICU for close neurological monitoring. MD DAX Paiz/FLORIDALMA /11:14 PM /7:17 AM
[2017-04-23] MEDS: RESP: ALBUTEROL 2.5 MG/3 ML NEB (PRN) NEB (07:53)
[2017-04-23] MEDS: RESP: BUDESONIDE 0.5 MG/2 ML NEB NEB SCH ×2 (07:53→19:58)
[2017-04-23] MEDS: HYDROCHLOROTHIAZIDE 25 MG TAB PO SCH (08:09)
[2017-04-23] MEDS: FAMOTIDINE 20 MG/2 ML VIAL IV PUSH SCH ×2 (08:49→20:39)
[2017-04-23] MEDS: SODIUM CHLORIDE 0.9% FLUSH 10 ML FLUSH IV FLUSH SCH ×2 (08:50→20:38)
[2017-04-23] MEDS ORDERED: GADODIAMIDE PF 287 MG/ML 20 ML VIAL (for RAD MRI) IV PUSH ONE (11:36)
--- NOTE | 2017-04-23 11:45 | RADRPT ---
EXAM DATE/TIME: 04/23/2017 09:29 [facility] COMPARISON: No previous studies available for comparison. INDICATIONS : Stroke alert. Post TPA. CONTRAST: 20 cc Omniscan (gadodiamide) IV MEDICAL HISTORY : Hypertension. SURGICAL HISTORY : Tonsillectomy. Hysterectomy. section. ENCOUNTER: Subsequent ACUITY: 2 day PAIN SCORE: 0/10 LOCATION: cranial TECHNIQUE: Multiplanar, multisequence MRI of the brain was performed both prior to and following the administrat ion of paramagnetic contrast. FINDINGS: CEREBRUM: The ventricles are normal for age. No evidence of midline shift, mass lesion, hemorrhage or acute in farction. No extraaxial fluid collections are seen. The pituitary gland and suprasellar cistern are normal in configuration. WHITE MATTER: Occasional punctate areas of T2 prolongation in periventricular white matter appear benign. POSTERIOR FOSSA: The cerebellum and brainstem are intact. The 4th ventricle is midline. The cerebellopontine angle is unremarkable. The cerebellar tonsils are normal in position. DIFFUSION IMAGING: No focal areas of restricted diffusion are seen. No evidence of acute infarction. EXTRACRANIAL: The visualized portions of the orbits and paranasal sinuses are unremarkable. POST-CONTRAST: No abnormal areas of parenchymal or dural enhancement. No evidence of blood-brain barrier breakdown. CONCLUSION: No acute intracranial findings Bakari Ortega MD on April 23, 2017 at 11:42 Board Certified Radiologist. This report was verified electronically.
--- NOTE | 2017-04-23 12:20 | EKG ---
Date Performed: 04/23/2017 Time Performed: 08:00:07 PTAGE: 61 years EKG: Sinus rhythm NORMAL ECG PREVIOUS TRACING : 04/22/2017 23.20 T-waves are much flatter from the old tracing. DOCTOR: Franklyn Burger Interpretating Date/Time 04/23/2017 12:19:03
--- NOTE | 2017-04-23 12:21 | EKG ---
Date Performed: 04/22/2017 Time Performed: 23:20:12 PTAGE: 61 years EKG: Sinus rhythm POSSIBLE LEFT ATRIAL ENLARGEMENT NONSPECIFIC T-WAVE ABNORMALITY BORDERLINE ECG PREVIOUS TRACING : 03/29/2015 16.54 T-wave abnormalities resolved from the prior tracing. DOCTOR: Franklyn Burger Interpretating Date/Time 04/23/2017 12:20:58
--- NOTE | 2017-04-23 17:20 | ECHRPT ---
Indication: cva/tia CONCLUSIONS Normal left ventricular size. Wall thickness is normal. [id number] mitral valve regurgitation. There is mild tricuspid valve regurgitation. The pulmonary valve is not well visualized. BP: / HR: Rhythm: MEASUREMENTS (Male / Female) Normal Values Technical Quality:Very technically difficult study 2D ECHO LV Diastolic Diameter PLAX 4.0 cm 4.2 - 5.9 / 3.9 - 5.3 cm LV Systolic Diameter PLAX 2.8 cm IVS Diastolic Thickness 0.9 cm 0.6 - 1.0 / 0.6 - 0.9 cm LVPW Diastolic Thickness 1.0 cm 0.6 - 1.0 / 0.6 - 0.9 cm LV Relative Wall Thickness 0.5 RV Internal Dim ED PLAX 2.3 cm M-MODE Aortic Root Diameter MM 3.0 cm LA Systolic Diameter MM 4.1 cm LA Ao Ratio MM 1.4 AV Cusp Separation MM 1.7 cm DOPPLER Mitral E Point Velocity 82.9 cm/s Mitral A Point Velocity 93.3 cm/s Mitral E to A Ratio 0.9 LV E' Lateral Velocity 6.9 cm/s Mitral E to LV E' Lateral Ratio 12.0 LV E' Septal Velocity 6.1 cm/s Mitral E to LV E' Septal Ratio 13.5 FINDINGS LEFT VENTRICLE The left ventricular systolic function is normal with an estimated ejection fraction in the range of 60-65%. Normal left ventricular size. Wall thickness is normal. RIGHT VENTRICLE Normal right ventricular size and systolic function. LEFT ATRIUM The left atrial size is normal. RIGHT ATRIUM The right atrial size is normal. ATRIAL SEPTUM Normal atrial septal thickness without atrial level shunting by limited color doppler interrogation. AORTA The aortic root and proximal ascending aorta are normal in size on limited imaging. MITRAL VALVE Structurally normal mitral valve. [id number]-[id number] mitral valve regurgitation. AORTIC VALVE Trileaflet aortic valve. No aortic valve stenosis or regurgitation. TRICUSPID VALVE Structurally normal tricuspid valve. There is mild tricuspid valve regurgitation. PULMONARY VALVE The pulmonary valve is not well visualized. VESSELS The inferior vena cava is normal in size. PERICARDIUM No pericardial effusion. Gibran Bello MD, FACC (Electronically Signed) Final Date:23 April 2017 17:18
[2017-04-23] MEDS: ATORVASTATIN 20 MG TAB PO SCH (20:39)
[2017-04-23] MEDS: VERAPAMIL HCL 180 MG SUSTAINED RELEASE TAB PO SCH (20:39)
--- NOTE | 2017-04-23 21:13 | HHI.PR ---
Review/Management Diagnosis right hemisphere stroke--resolved after iv TPA Plan [address] brain tonight start plavix and aspirin in am > 24 hrs post tpa. Diagnosis/Plan: Subjective Subjective Comments No acute events reported feels left sided strength back to normal Active Medications Current Medications Medications (Trade) Dose Ordered Sig/Lyle Route Start Time Stop Time Status Last Admin (NS Flush) 2 ml UNSCH PRN IV FLUSH 04/23/17 01:00 (NS Flush) 2 ml BID IV FLUSH 04/23/17 09:00 04/23/17 20:38 (Pepcid Inj) 20 mg Q12HR IV PUSH 04/23/17 09:00 04/23/17 20:39 (Zofran Inj) 4 mg Q6H PRN IV PUSH 04/23/17 01:00 Miscellaneous Information 1 [id number] XX 04/23/17 01:00 (Chlorhexidine 2% Cloth) 3 pack Taper DAILY@04 TOP 04/23/17 04:00 04/19/18 03:59 (Chlorhexidine 2% Cloth) 3 pack UNSCH PRN TOP 04/23/17 01:00 Potassium Chloride/Sodium Chloride 1,000 ml @ 84 mls/hr [id number] IV 04/23/17 01:00 04/23/17 15:24 (Trandate Inj) 10 mg Q6H PRN IV PUSH 04/23/17 01:15 Nicardipine HCl 25 mg/Sodium Chloride 250 ml @ 50 mls/hr TITRATE PRN IV 04/23/17 01:15 (Albuterol Neb) 2.5 mg Q2HR NEB PRN NEB 04/23/17 01:15 04/23/17 07:53 (Pulmicort Respule Neb) 0.5 mg Q12HR NEB NEB 04/23/17 08:00 04/23/17 19:58 (Lipitor) 20 mg HS PO 04/23/17 21:00 04/23/17 20:39 (Hydrodiuril) 25 mg DAILY PO 04/23/17 09:00 (Isoptin Sr) 180 mg HS PO 04/23/17 21:00 04/23/17 20:39 (Flu (Quadrivalent) Vaccine Inj) 0.5 ml ONCE ONCE IM 04/24/17 10:00 04/24/17 10:01 Allergies Allergies Coded Allergies hydrocodone (Unverified Allergy, Intermediate, Nausea/Vomiting, 04/22/17) isosorbide (Unverified Allergy, Unknown, 04/22/17) naproxen (Unverified Allergy, Unknown, UNKNOWN, PT FORGETS, 04/22/17) Exam I&O / VS 04/23/17 04/23/17 04/24/17 15:00 23:00 07:00 Intake Total 1221 ml Output Total 1200 ml Balance 21 ml Intake Oral 480 ml IV Total 741 ml Output Urine Total 1200 ml Vital Signs Date Time Temp Pulse Resp B/P (MAP) Pulse Ox O2 Delivery O2 Flow Rate FiO2 04/23/17 19:59 96 21 04/23/17 18:00 83 04/23/17 16:00 98.5 80 20 144/68 (93) 99 04/23/17 16:00 80 04/23/17 14:00 81 04/23/17 12:00 98.3 80 19 155/73 (100) 98 04/23/17 12:00 80 04/23/17 10:00 72 04/23/17 08:00 78 04/23/17 08:00 97.9 78 20 152/70 (97) 99 04/23/17 07:57 99 04/23/17 07:00 100 Nasal Cannula 2.00 04/23/17 06:00 70 04/23/17 04:00 98.8 72 13 149/69 (95) 99 04/23/17 04:00 73 04/23/17 01:30 98.3 73 12 144/77 (99) 99 04/23/17 01:30 72 04/23/17 01:15 04/23/17 00:00 87 16 143/69 (93) 99 Nasal Cannula 2.00 04/22/17 23:45 82 16 154/78 (103) 99 Nasal Cannula 2.00 04/22/17 23:30 87 149/70 (96) 100 Nasal Cannula 2.00 04/22/17 23:22 Nasal Cannula 2.00 04/22/17 23:22 97 Room Air 04/22/17 23:15 85 16 160/76 (104) 96 Room Air 04/22/17 23:02 96 04/22/17 23:00 84 189/88 (121) 95 Room Air 04/22/17 22:45 84 187/80 04/22/17 22:23 78 16 187/89 (121) 96 Room Air 04/22/17 22:02 97.7 81 20 179/128 (145) 96 Exam Comments alert, speech normal CN 2-12 normal MOTOR 5/5 BUE and BLE. normal fine motor, no drift. Objective Radiology Results MRI brain normal CTA brain --normal CTA neck-normal Micro and Labs Laboratory Tests Test 04/22/17 22:10 04/22/17 23:00 04/23/17 01:45 White Blood Count 9.2 Red Blood Count 4.45 Hemoglobin 13.5 Bedside Hemoglobin 13.9 Hematocrit 40.6 Bedside Hematocrit 41.0 Mean Corpuscular Volume 91.2 Mean Corpuscular Hemoglobin 30.4 Mean Corpuscular Hemoglobin Concent 33.3 Red Cell Distribution Width 15.5 Platelet Count 207 Mean Platelet Volume 9.1 Neutrophils (%) (Auto) 53.2 Lymphocytes (%) (Auto) 18.7 Monocytes (%) (Auto) 7.8 Eosinophils (%) (Auto) 19.7 Basophils (%) (Auto) 0.6 Neutrophils # (Auto) 4.9 Lymphocytes # (Auto) 1.7 Monocytes # (Auto) 0.7 Eosinophils # (Auto) 1.8 Basophils # (Auto) 0.1 CBC Comment DIFF FINAL Differential Comment Prothrombin Time 11.0 Prothromb Time International Ratio 1.0 Activated Partial Thromboplast Time 29.9 Fibrinogen 420 Bedside Sodium 142 Bedside Potassium 3.4 Bedside Chloride 103 Bedside Blood Urea Nitrogen 12 Bedside Creatinine 0.8 Bedside Glucose 111 Total Creatine Kinase 187 Troponin I LESS THAN 0.02 Triglycerides Level 148 Cholesterol Level 132 LDL Cholesterol 49 HDL Cholesterol 53.2 Cholesterol/HDL Ratio 2.48 Urine Color LIGHT-YELLOW Urine Turbidity HAZY Urine pH 8.0 Urine Specific [place] 1.012 Urine Protein NEG Urine Glucose (UA) NEG Urine Ketones NEG Urine Occult Blood NEG Urine Nitrite NEG Urine Bilirubin NEG Urine Urobilinogen LESS THAN 2.0 Urine Leukocyte Esterase NEG Urine RBC 1 Urine WBC LESS THAN 1 Urine Amorphous Sediment RARE Urine Opiates Screen NEG Urine Barbiturates Screen NEG Urine Amphetamines Screen NEG Urine Benzodiazepines Screen NEG Urine Cocaine Screen NEG Urine Cannabinoids Screen NEG Nasal Screen MRSA (PCR) MRSA NOT DETECTED Simon Tom PhD Apr 23, 2017 21:13
--- NOTE | 2017-04-23 23:27 | RADRPT ---
EXAM DATE/TIME: 04/23/2017 23:12 [facility] COMPARISON: CT BRAIN W/O CONTRAST, April 22, 2017, 22:14. INDICATIONS : Post TPA. RADIATION DOSE: 49.15 CTDIvol (mGy) MEDICAL HISTORY : Hypertension. SURGICAL HISTORY : None. ENCOUNTER: Subsequent ACUITY: 1 day PAIN SCALE: 0/10 LOCATION: cranial TECHNIQUE: Multiple contiguous axial images were obtained of the head. Using automated exposure control and adj ustment of the mA and/or kV according to patient size, radiation dose was kept as low as reasonably a chievable to obtain optimal diagnostic quality images. DICOM format image data is available electro nically for review and comparison. FINDINGS: CEREBRUM: The ventricles are normal for age. No evidence of midline shift, mass lesion, hemorrhage or acute in farction. No extra-axial fluid collections are seen. POSTERIOR FOSSA: The cerebellum and brainstem are intact. The 4th ventricle is midline. The cerebellopontine angle i s unremarkable. EXTRACRANIAL: The visualized portion of the orbits is intact. SKULL: The calvaria is intact. No evidence of skull fracture. CONCLUSION: Normal examination. No significant change has occurred. Joel Shea MD on April 23, 2017 at 23:23 Board Certified Radiologist. This report was verified electronically.
[2017-04-24] VITALS (14 sets, daily range): BP systolic 128–160; BP diastolic 62–87; PULSE 66–106; RESP 12–24; TEMP 97.7–98.5; O2SAT 94–99
[2017-04-24] MEDS: CHLORHEXIDINE GLUCONATE 2 % 1 PACK (2 CLOTHS) TOP SCH (04:00)
[2017-04-24 04:10] LABS: AUTOMATED NEUTROPHIL # 5.6 TH/MM3 (1.8-7.7); BASOPHIL # 0.1 TH/MM3 (0-0.2); BASOPHIL % 0.8 % (0.0-2.0); HEMATOCRIT 39.7 % (35.0-46.0); HEMO FLAGS DIFF FINAL; LYMPHOCYTE # 1.6 TH/MM3 (1.0-4.8); MEAN CELL VOLUME 91.4 FL (80.0-100.0); MEAN CORPUSCULAR HGB CONC 32.8 % (32.0-36.0); MONO % 7.2 % (0.0-8.0); PLATELET COUNT 195 TH/MM3 (150-450); RED BLOOD COUNT 4.34 MIL/MM3 (4.00-5.30); WHITE BLOOD COUNT 8.9 TH/MM3 (4.0-11.0)
[2017-04-24 04:32] LABS: POTASSIUM 3.5 MEQ/L (3.5-5.1)
--- NOTE | 2017-04-24 07:20 | HHI.CCPN ---
Subjective Remarks/Hospital Course 61 yo Right hand dominant AAF with medical history of hypertension and hyperlipidemia who presented to [facility] with acute onset of aphasia, L sided facial tingling, and L hemiparesis at 9:30 pm on 04/22. No fall or seizure. She was on ASA but no anticoagulants. Stroke alert was called. CT brain was negative. NIH stroke score 6. TPA was initiated at 2300 on 04/22. She denies any prior issues with bleeding. TPA has been completed upon my evaluation and patient states her speech and L sided weakness is significantly improved. Denies headache, neck pain, chest pain, GI bleeding, nausea, vomiting, abdominal pain. Remainder review of systems negative. 04/24: Left arm and leg slightly weaker on exam yesterday afternoon. Left hand grasp about 3/5 strength. Protects airway well, swallow evaluation to follow. BP control acceptable. Objective Vital Signs Date Time Temp Pulse Resp B/P (MAP) Pulse Ox O2 Delivery O2 Flow Rate FiO2 04/24/17 06:00 96 04/24/17 04:00 97.7 24 128/70 (89) 97 04/23/17 19:59 21 04/23/17 19:00 Room Air 04/23/17 07:00 2.00 Intake and Output 04/24/17 04/24/17 04/25/17 08:00 16:00 00:00 Intake Total 100 ml Output Total 1300 ml Balance -1200 ml Result Diagram: 04/24/17 0400 04/24/17 0400 Objective Remarks GENERAL: Well-nourished, well-developed patient who is laying flat in ED [facility]. SKIN: Warm and dry. HEAD: Atraumatic. Normocephalic. EYES: Pupils equal and round, 2 mm reactive bilaterally. ENT: No nasal bleeding or discharge. Mucous membranes pink and moist. NECK: Trachea midline. Airway widely patent. CARDIOVASCULAR: Regular rate and rhythm. No murmurs rubs or rubs. No JVD. RESPIRATORY: No accessory muscle use. Clear to auscultation. Breath sounds equal bilaterally. On 2 L nasal cannula. GASTROINTESTINAL: Abdomen soft, non-tender, nondistended. Bowel sounds present. MUSCULOSKELETAL: Extremities without clubbing, cyanosis, or edema. Warm, well perfused. NEUROLOGICAL: Awake and alert, oriented 4. Speech is a little slow, at times unclear. Normal naming. Normal tongue protrusion. 4/5 L foot plantar/ dorsiflexion. 4+/5 L hip flexor and hamstring. Patellar DTRs are 2+ bilaterally. No abnormal response to Babinski. A/P Problem List: (1) HTN (hypertension) ICD Code: I10 - Essential (primary) hypertension Status: Chronic (2) HLD (hyperlipidemia) ICD Code: E78.5 - Hyperlipidemia, unspecified Status: Chronic (3) History of coronary vasospasm ICD Code: Z86.79 - Personal history of other diseases of the circulatory system (4) Hypokalemia ICD Code: E87.6 - Hypokalemia Status: Acute (5) Asthma ICD Code: J45.909 - Unspecified asthma, uncomplicated Status: Chronic (6) Ischemic stroke ICD Code: I63.9 - Cerebral infarction, unspecified Status: Acute Assessment and Plan NEURO: Acute ischemic stroke CT brain 04/23 - negative CTA Neck and brain 04/23negative MRI brain pending TPA started 2300 on 04/22 No antiplatelets or anticoagulants for 24 hours. Lipid panel within normal limits. Urine drug screen negative 2-D echo pending Monitor telemetry Neurology following, Dr. Tom. PT and OT consult. Repeat Head CT today. MRI - no acute injury RESP: Asthma Allergic rhinitis Albuterol every 2 hours as needed for wheezing. Budesonide 0.5 twice a day CV: Hypertension Hyperlipidemia History of coronary vasospasm with prior negative cardiac catheterization 02/2003 HCTZ 25 mg by mouth daily, atorvastatin 20 mg by mouth daily at bedtime, verapamil 180 mg by mouth daily at bedtime. Hold aspirin 81 mg daily for 24 hours post TPA Monitor blood pressure. Labetalol 10 mg IV every 4 hours as needed for systolic blood pressure greater than 185 or diastolic blood pressure greater than 110. Nicardipine if needed to maintain these BP targets. GI: Nothing by mouth. Bedside swallow eval and will obtain speech therapy consult if needed. FEN/RENAL: Hypokalemia Patiño in place. Monitor intake and output. Monitor electrolytes and replace when indicated. Replace potassium 20 mEq IV now 0.9 NaCl with 20 mEq of KCl per liter at 80 mL per hour I D: Monitor for signs and symptoms of infection HEME: Eosinophilia Monitor for bleeding status post TPA. ENDO: Euglycemic PROPH: SCDs for DVT prophylaxis. No pharmacology DVT prophylaxis for 24 hours after TPA. Famotidine 20 mg IV every 12 hours for stress ulcer prophylaxis. ACCESS: Peripheral IV providing adequate access at this time. Patient and her were updated at bedside. Questions were answered. Patient will be admitted to [facility] for close hemodynamic monitoring and monitoring for complication of TPA. Overall impression: Appears to have fixed left sided deficit, mild. Workup continues for etiology. Justin Servin MD Apr 24, 2017 07:20
[2017-04-24] MEDS: RESP: BUDESONIDE 0.5 MG/2 ML NEB NEB SCH ×2 (09:50→20:12)
[2017-04-24] MEDS: RESP: ALBUTEROL 2.5 MG/3 ML NEB (PRN) NEB (09:50)
[2017-04-24] MEDS ORDERED: INFLUENZA VIRUS VACCINE (QUADRIVALENT) 0.5 ML SYR IM ONE (10:00)
[2017-04-24] MEDS: SODIUM CHLORIDE 0.9% FLUSH 10 ML FLUSH IV FLUSH SCH ×2 (10:18→21:00)
[2017-04-24] MEDS: FAMOTIDINE 20 MG/2 ML VIAL IV PUSH SCH ×2 (10:19→21:14)
[2017-04-24] MEDS: CLOPIDOGREL 75 MG TAB PO SCH (10:19)
[2017-04-24] MEDS: ASPIRIN 325 MG TAB PO SCH (10:19)
[2017-04-24] MEDS: HYDROCHLOROTHIAZIDE 25 MG TAB PO SCH (10:20)
[2017-04-24] MEDS: NS + KCL 20 MEQ INJ 1,000 ML IV SCH ×3 (10:20→21:14)
--- NOTE | 2017-04-24 18:39 | HHI.PR ---
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 Diagnosis/Plan: Subjective Subjective Comments No acute events reported feels left sided strength normal Active Medications Current Medications Medications (Trade) Dose Ordered Sig/Llye Route Start Time Stop Time Status Last Admin (NS Flush) 2 ml UNSCH PRN IV FLUSH 04/23/17 01:00 (NS Flush) 2 ml BID IV FLUSH 04/23/17 09:00 04/24/17 10:18 (Pepcid Inj) 20 mg Q12HR IV PUSH 04/23/17 09:00 04/24/17 10:19 (Zofran Inj) 4 mg Q6H PRN IV PUSH 04/23/17 01:00 Miscellaneous Information 1 Q361D XX 04/23/17 01:00 (Chlorhexidine 2% Cloth) 3 pack Taper DAILY@04 TOP 04/23/17 04:00 04/19/18 03:59 (Chlorhexidine 2% Cloth) 3 pack UNSCH PRN TOP 04/23/17 01:00 Potassium Chloride/Sodium Chloride 1,000 ml @ 84 mls/hr [id number] IV 04/23/17 01:00 04/24/17 12:45 (Trandate Inj) 10 mg Q6H PRN IV PUSH 04/23/17 01:15 Nicardipine HCl 25 mg/Sodium Chloride 250 ml @ 50 mls/hr TITRATE PRN IV 04/23/17 01:15 (Albuterol Neb) 2.5 mg Q2HR NEB PRN NEB 04/23/17 01:15 04/24/17 09:50 (Pulmicort Respule Neb) 0.5 mg Q12HR NEB NEB 04/23/17 08:00 04/24/17 09:50 (Lipitor) 20 mg HS PO 04/23/17 21:00 04/23/17 20:39 (Hydrodiuril) 25 mg DAILY PO 04/23/17 09:00 04/24/17 10:20 (Isoptin Sr) 180 mg HS PO 04/23/17 21:00 04/23/17 20:39 (Aspirin) 325 mg DAILY PO 04/24/17 09:00 04/24/17 10:19 (Plavix) 75 mg DAILY PO 04/24/17 09:00 04/24/17 10:19 Allergies Allergies Coded Allergies hydrocodone (Unverified Allergy, Intermediate, Nausea/Vomiting, 04/22/17) isosorbide (Unverified Allergy, Unknown, 04/22/17) naproxen (Unverified Allergy, Unknown, UNKNOWN, PT FORGETS, 04/22/17) Exam I&O / VS Vital Signs Date Time Temp Pulse Resp B/P (MAP) Pulse Ox O2 Delivery O2 Flow Rate FiO2 04/24/17 09:53 96 21 04/24/17 07:00 99 Room Air 04/24/17 06:00 96 04/24/17 04:00 97.7 74 24 128/70 (89) 97 04/24/17 04:00 74 04/24/17 02:00 73 04/24/17 00:00 74 04/24/17 00:00 98.2 74 16 157/83 (107) 94 04/23/17 22:00 80 04/23/17 20:00 87 04/23/17 20:00 98.6 88 22 165/78 (107) 97 04/23/17 19:59 96 21 04/23/17 19:00 98 Room Air Exam Comments alert, speech normal CN 2-12 normal MOTOR 5/5 BUE and BLE. normal fine motor, no drift. Objective Radiology Results CT brain 24 hrs post TPA normal MRI brain normal Micro and Labs Laboratory Tests Test 04/24/17 04:00 White Blood Count 8.9 Red Blood Count 4.34 Hemoglobin 13.0 Hematocrit 39.7 Mean Corpuscular Volume 91.4 Mean Corpuscular Hemoglobin 30.0 Mean Corpuscular Hemoglobin Concent 32.8 Red Cell Distribution Width 16.0 Platelet Count 195 Mean Platelet Volume 8.8 Neutrophils (%) (Auto) 63.0 Lymphocytes (%) (Auto) 18.0 Monocytes (%) (Auto) 7.2 Eosinophils (%) (Auto) 11.0 Basophils (%) (Auto) 0.8 Neutrophils # (Auto) 5.6 Lymphocytes # (Auto) 1.6 Monocytes # (Auto) 0.6 Eosinophils # (Auto) 1.0 Basophils # (Auto) 0.1 CBC Comment DIFF FINAL Differential Comment Blood Urea Nitrogen 10 Creatinine 0.75 Random Glucose 105 Calcium Level 8.3 Sodium Level 141 Potassium Level 3.5 Chloride Level 107 Carbon Dioxide Level 27.0 Anion Gap 7 Estimat Glomerular Filtration Rate 95 Diagnostic Tests ECHO--no embolic source seen Simon Tom PhD Apr 24, 2017 18:39
[2017-04-24] MEDS ORDERED: ALTEPLASE BOLUS 9 MG/9 ML SYR IV ONE (19:00)
[2017-04-24] MEDS ORDERED: MISCELLANEOUS NURSING INFORMATION XX PRN (19:00)
[2017-04-24] MEDS ORDERED: SODIUM CHLORIDE 0.9% 50 ML BAG IVF ONE (19:00)
[2017-04-24] MEDS ORDERED: ALTEPLASE DRIP 81 MG in SYRINGE/BAG 1 EA IV ONE (19:00)
[2017-04-24] MEDS: VERAPAMIL HCL 180 MG SUSTAINED RELEASE TAB PO SCH (21:13)
[2017-04-24] MEDS: ATORVASTATIN 20 MG TAB PO SCH (21:13)
[2017-04-25] VITALS (10 sets, daily range): BP systolic 135–165; BP diastolic 75–92; PULSE 74–87; RESP 16–20; TEMP 97.9–98.5; O2SAT 96–99
[2017-04-25] MEDS: CHLORHEXIDINE GLUCONATE 2 % 1 PACK (2 CLOTHS) TOP SCH (03:55)
[2017-04-25 05:46] LABS: BICARBONATE 28.7 MEQ/L (21.0-32.0); POTASSIUM 3.2 MEQ/L (3.5-5.1)
[2017-04-25] MEDS: RESP: BUDESONIDE 0.5 MG/2 ML NEB NEB SCH ×2 (07:49→20:00)
[2017-04-25] MEDS: ASPIRIN 325 MG TAB PO SCH (08:52)
[2017-04-25] MEDS: HYDROCHLOROTHIAZIDE 25 MG TAB PO SCH (08:52)
[2017-04-25] MEDS: SODIUM CHLORIDE 0.9% FLUSH 10 ML FLUSH IV FLUSH SCH ×2 (08:52→21:00)
[2017-04-25] MEDS: FAMOTIDINE 20 MG/2 ML VIAL IV PUSH SCH ×2 (08:52→23:04)
[2017-04-25] MEDS: CLOPIDOGREL 75 MG TAB PO SCH (08:52)
--- NOTE | 2017-04-25 09:52 | HHI.PR ---
Subjective Remarks Follow-up right hemisphere stroke 04/25/17-patient seen and examined, denies any weakness to left upper extremity. Denies any tingling or numbness to left facial area Objective Vitals Vital Signs Date Time Temp Pulse Resp B/P (MAP) Pulse Ox O2 Delivery O2 Flow Rate FiO2 04/25/17 08:00 81 04/25/17 08:00 98.5 81 18 165/83 (110) 98 04/25/17 07:00 98 Room Air 04/25/17 06:00 82 04/25/17 04:00 98.1 82 18 140/79 (99) 96 04/25/17 02:00 79 04/25/17 00:00 98.5 80 18 145/76 (99) 99 04/25/17 00:00 77 04/24/17 22:00 77 04/24/17 20:13 95 21 04/24/17 20:00 98.5 78 18 160/87 (111) 99 04/24/17 20:00 78 04/24/17 19:00 99 Room Air 04/24/17 18:00 94 04/24/17 16:00 106 04/24/17 16:00 98.4 106 22 128/62 (84) 97 04/24/17 14:00 76 04/24/17 12:00 98.3 72 12 134/77 (96) 98 04/24/17 12:00 72 04/24/17 10:00 66 04/24/17 09:53 96 21 I/O 04/24/17 04/24/17 04/24/17 04/25/17 04/25/17 04/25/17 07:00 15:00 23:00 07:00 15:00 23:00 Intake Total 100 ml 1434 ml 1100 ml Output Total 1300 ml 1000 ml Balance -1200 ml 434 ml 1100 ml Intake Oral 100 ml 720 ml 600 ml IV Total 714 ml 500 ml Output Urine Total 1300 ml 1000 ml # Voids 5 # Bowel Movements 0 1 0 Result Diagram: 04/24/1739904/25/179 Imaging Last Impressions Head CT 04/23/17 2300 Signed Impressions: Service Date/Time: Sunday, April 23, 2017 23:12 - CONCLUSION: Normal examination. No significant change has occurred. Joel Shea MD Brain MRI 04/23/17 0000 Signed Impressions: Service Date/Time: Sunday, April 23, 2017 09:29 - CONCLUSION: No acute intracranial findings Bakari Ortega MD Neck CTA 04/22/172209 Signed Impressions: Service Date/Time: Saturday, April 22, 2017 23:05 - CONCLUSION: Normal examination for a patient of this age. Joel Shea MD Head CTA 04/22/172209 Signed Impressions: Service Date/Time: Saturday, April 22, 2017 23:05 - CONCLUSION: Normal examination for a patient of this age. Joel Shea MD Objective Remarks GENERAL: NAD SKIN: Warm and dry. HEAD: Normocephalic. EYES: No scleral icterus. No injection or drainage. NECK: Supple, trachea midline. No JVD or lymphadenopathy. CARDIOVASCULAR: Regular rate and rhythm without murmurs, gallops, or rubs. RESPIRATORY: Breath sounds equal bilaterally. No accessory muscle use. GASTROINTESTINAL: Abdomen soft, non-tender, nondistended. MUSCULOSKELETAL: No cyanosis, or edema. BACK: Nontender without obvious deformity. No CVA tenderness. Procedures none A/P Problem List: (1) Ischemic stroke ICD Code: I63.9 - Cerebral infarction, unspecified Status: Acute (2) HTN (hypertension) ICD Code: I10 - Essential (primary) hypertension Status: Chronic (3) HLD (hyperlipidemia) ICD Code: E78.5 - Hyperlipidemia, unspecified Status: Chronic (4) Asthma ICD Code: J45.909 - Unspecified asthma, uncomplicated Status: Chronic (5) Hypokalemia ICD Code: E87.6 - Hypokalemia Status: Acute Assessment and Plan 61-year-old female with Acute ischemic stroke Resolved status post TPA Continue with aspirin and Plavix Appreciate input from neurology Cardiology consultation pending 2-D echo with EF 60-65% PT/OT to treat and eval Asthma Allergic rhinitis Albuterol every 2 hours as needed for wheezing. Budesonide 0.5 twice a day Hypertension Hyperlipidemia History of coronary vasospasm with prior negative cardiac catheterization 02/2003 Continue with HCTZ 25 mg by mouth daily, atorvastatin 20 mg by mouth daily at bedtime, verapamil 180 mg by mouth daily at bedtime. Hypokalemia Replace electrolyte and monitor Eosinophilia Monitor for bleeding status post TPA. PROPH: SCDs for DVT prophylaxis. No pharmacology DVT prophylaxis for 24 hours after TPA. Famotidine 20 mg IV every 12 hours for stress ulcer prophylaxis. Transfer to Demetrius Britt MD Apr 25, 2017 09:52
--- NOTE | 2017-04-25 18:53 | HHI.PR ---
Review/Management Diagnosis right hemisphere stroke--resolved after iv TPA Plan continue plavix and asa monitor cardiac telemetry r/o afib recommend cardiology eval for possible halfway case monitor for r/o intermittent afib. ok from neurology standpoint to discharge tomorrow if ok with primary service. Diagnosis/Plan: Subjective Subjective Comments No acute events reported No headache No focal weakness or numbness Ambulating well Active Medications Current Medications Medications (Trade) Dose Ordered Sig/Lyle Route Start Time Stop Time Status Last Admin (NS Flush) 2 ml UNSCH PRN IV FLUSH 04/23/17 01:00 (NS Flush) 2 ml BID IV FLUSH 04/23/17 09:00 04/25/17 08:52 (Pepcid Inj) 20 mg Q12HR IV PUSH 04/23/17 09:00 04/25/17 08:52 (Zofran Inj) 4 mg Q6H PRN IV PUSH 04/23/17 01:00 Miscellaneous Information 1 Q361D XX 04/23/17 01:00 (Chlorhexidine 2% Cloth) 3 pack Taper DAILY@04 TOP 04/23/17 04:00 04/19/18 03:59 (Chlorhexidine 2% Cloth) 3 pack UNSCH PRN TOP 04/23/17 01:00 Potassium Chloride/Sodium Chloride 1,000 ml @ 84 mls/hr [id number] IV 04/23/17 01:00 04/24/17 21:14 (Trandate Inj) 10 mg Q6H PRN IV PUSH 04/23/17 01:15 Nicardipine HCl 25 mg/Sodium Chloride 250 ml @ 50 mls/hr TITRATE PRN IV 04/23/17 01:15 (Albuterol Neb) 2.5 mg Q2HR NEB PRN NEB 04/23/17 01:15 04/24/17 09:50 (Pulmicort Respule Neb) 0.5 mg Q12HR NEB NEB 04/23/17 08:00 04/25/17 07:49 (Lipitor) 20 mg HS PO 04/23/17 21:00 04/24/17 21:13 (Hydrodiuril) 25 mg DAILY PO 04/23/17 09:00 04/25/17 08:52 (Isoptin Sr) 180 mg HS PO 04/23/17 21:00 04/24/17 21:13 (Aspirin) 325 mg DAILY PO 04/24/17 09:00 04/25/17 08:52 (Plavix) 75 mg DAILY PO 04/24/17 09:00 04/25/17 08:52 Miscellaneous Information No Heparin, Warfarin, Aspir... UNSCH PRN XX 04/24/17 19:00 04/25/17 18:59 Allergies Allergies Coded Allergies hydrocodone (Unverified Allergy, Intermediate, Nausea/Vomiting, 04/22/17) isosorbide (Unverified Allergy, Unknown, 04/22/17) naproxen (Unverified Allergy, Unknown, UNKNOWN, PT FORGETS, 04/22/17) Exam I&O / VS Vital Signs Date Time Temp Pulse Resp B/P (MAP) Pulse Ox O2 Delivery O2 Flow Rate FiO2 04/25/17 16:36 97.9 82 18 147/83 (104) 96 04/25/17 12:00 74 04/25/17 12:00 98.0 74 20 163/92 (115) 98 04/25/17 08:00 81 04/25/17 08:00 98.5 81 18 165/83 (110) 98 04/25/17 07:00 98 Room Air 04/25/17 06:00 82 04/25/17 04:00 98.1 82 18 140/79 (99) 96 04/25/17 02:00 79 04/25/17 00:00 98.5 80 18 145/76 (99) 99 04/25/17 00:00 77 04/24/17 22:00 77 04/24/17 20:13 95 21 04/24/17 20:00 98.5 78 18 160/87 (111) 99 04/24/17 20:00 78 04/24/17 19:00 99 Room Air Exam Comments alert, speech normal CN 2-12 normal MOTOR 5/5 BUE and BLE. normal fine motor, no drift. Objective Micro and Labs Laboratory Tests Test 04/25/17 04:29 Blood Urea Nitrogen 12 Creatinine 0.70 Random Glucose 93 Calcium Level 9.0 Sodium Level 140 Potassium Level 3.2 Chloride Level 104 Carbon Dioxide Level 28.7 Anion Gap 7 Estimat Glomerular Filtration Rate 103 Simon Tom PhD Apr 25, 2017 18:53
--- NOTE | 2017-04-25 22:16 | MB ---
cc: LIZZETTE OWENS MD DATE OF CONSULTATION 04/25/17 HISTORY OF PRESENT ILLNESS Ms. Horne is a very pleasant 61-year-old white female with a history of hypertension and dyslipidemia. She developed left-sided weakness. She was diagnosed with acute right hemispheric stroke. She was given IV TPA with resolution of symptoms. She was initially hypertensive and subsequently her blood pressure has improved. She currently has no neurologic deficits. She is cardiology patient of Dr. Gonzalez. PAST MEDICAL HISTORY 1. Hysterectomy, 2. Tonsillectomy, 3. Hypertension, 4. Dyslipidemia. MEDICATIONS At home, 1. Verelan. 2. Atorvastatin 3. Hydrochlorothiazide 4. Potassium chloride 5. Isosorbide. 6. Nitrostat. 7. Pulmicort 8. ProAir inhaler. 9. Multivitamin 10. 11. Aspirin. 12. Claritin. ALLERGIES HYDROCODONE ISOSORBIDE SOCIAL HISTORY The patient does not smoke, does not drink alcohol. FAMILY HISTORY Positive for heart disease. REVIEW OF SYSTEMS Otherwise negative. PHYSICAL EXAMINATION VITAL SIGNS: Blood pressure 147/75, pulse 87 and regular. HEENT: Negative. 2+ carotid upstrokes. No bruits. LUNGS: Clear. HEART: Regular with no murmur, gallop or rub. ABDOMEN: Soft, no bruits. EXTREMITIES: Without edema. 2+ distal pulses NEUROLOGIC: Grossly nonfocal. CARDIOLOGY STUDIES EKG was reviewed and showed normal sinus rhythm, normal axis intervals, nonspecific T-wave changes. LABORATORY DATA Hemoglobin 13.0, potassium 3.2, creatinine 0.7, LDL 49, HDL 60. DIAGNOSES 1. Acute right hemispheric stroke. 2. Hypertension 3. Dyslipidemia. DISPOSITION The patient is afebrile, continue current medical program including Plavix and aspirin. She can be discharged home from cardiac standpoint. She was instructed to follow up with Dr. Gonzalez, her primary screening representative, for outpatient cardiac monitoring to evaluate for paroxysmal atrial fibrillation. The patient will call Dr. Gonzalez's office after discharge. Lizzette Owens MD ODarlene/ /8:45 PM /10:06 PM
[2017-04-25] MEDS: VERAPAMIL HCL 180 MG SUSTAINED RELEASE TAB PO SCH (23:03)
[2017-04-25] MEDS: ATORVASTATIN 20 MG TAB PO SCH (23:04)
[2017-04-26 01:15] VITALS: BP 138/79; PULSE 85; RESP 16; TEMP 98.1; O2SAT 96
[2017-04-26] MEDS: CHLORHEXIDINE GLUCONATE 2 % 1 PACK (2 CLOTHS) TOP SCH (04:00)
[2017-04-26] MEDS: RESP: BUDESONIDE 0.5 MG/2 ML NEB NEB SCH (07:57)
[2017-04-26] MEDS: RESP: ALBUTEROL 2.5 MG/3 ML NEB (PRN) NEB (07:57)
[2017-04-26 08:09] VITALS: BP 131/78; PULSE 83; RESP 20; TEMP 98.2; O2SAT 97
[2017-04-26] MEDS: CLOPIDOGREL 75 MG TAB PO SCH (08:57)
[2017-04-26] MEDS: HYDROCHLOROTHIAZIDE 25 MG TAB PO SCH (08:57)
[2017-04-26] MEDS: ASPIRIN 325 MG TAB PO SCH (08:57)
[2017-04-26] MEDS: SODIUM CHLORIDE 0.9% FLUSH 10 ML FLUSH IV FLUSH SCH (08:58)
[2017-04-26] MEDS: FAMOTIDINE 20 MG/2 ML VIAL IV PUSH SCH (08:58)
[2017-04-26 09:00] VITALS: PULSE 74
[2017-04-26] MEDS ORDERED: ASPI325T PO (10:51)
[2017-04-26] MEDS ORDERED: PLAV75TA29 PO (10:51)
--- NOTE | 2017-04-26 10:55 | HHI.PR ---
Subjective Remarks Follow-up right hemisphere stroke 04/25/17-patient seen and examined, denies any weakness to left upper extremity. Denies any tingling or numbness to left facial area 04/26/17-patient seen and examined, stable and denies any weakness to left upper and lower extremity. Case Was discussed with cardiology last night. Patient will need outpatient follow-up with her own cardiology for evaluation of paroxysmal A. fib. Objective Vitals Vital Signs Date Time Temp Pulse Resp B/P (MAP) Pulse Ox O2 Delivery O2 Flow Rate FiO2 04/26/17 08:09 98.2 83 20 131/78 (95) 97 04/26/17 01:15 98.1 85 16 138/79 (98) 96 04/25/17 23:06 85 135/84 (101) 04/25/17 21:40 Room Air 04/25/17 20:33 97.9 87 16 147/75 (99) 97 04/25/17 20:01 85 04/25/17 16:36 97.9 82 18 147/83 (104) 96 04/25/17 12:47 98 Room Air 04/25/17 12:00 74 04/25/17 12:00 98.0 74 20 163/92 (115) 98 I/O 04/25/17 04/25/17 04/25/17 04/26/17 04/26/17 04/26/17 07:00 15:00 23:00 07:00 15:00 23:00 Intake Total 1100 ml Balance 1100 ml Intake Oral 600 ml IV Total 500 ml # Voids 5 2 # Bowel Movements 0 1 Result Diagram: 04/24/17 0400 04/25/17 0429 Imaging Last Impressions Head CT 04/23/17 2300 Signed Impressions: Service Date/Time: Sunday, April 23, 2017 23:12 - CONCLUSION: Normal examination. No significant change has occurred. Joel Shea MD Brain MRI 04/23/17 0000 Signed Impressions: Service Date/Time: Sunday, April 23, 2017 09:29 - CONCLUSION: No acute intracranial findings Bakari Ortega MD Neck CTA 04/22/17 2210 Signed Impressions: Service Date/Time: Saturday, April 22, 2017 23:05 - CONCLUSION: Normal examination for a patient of this age. Joel Shea MD Head CTA 04/22/17 2210 Signed Impressions: Service Date/Time: Saturday, April 22, 2017 23:05 - CONCLUSION: Normal examination for a patient of this age. Joel Shea MD Objective Remarks GENERAL: NAD SKIN: Warm and dry. HEAD: Normocephalic. EYES: No scleral icterus. No injection or drainage. NECK: Supple, trachea midline. No JVD or lymphadenopathy. CARDIOVASCULAR: Regular rate and rhythm without murmurs, gallops, or rubs. RESPIRATORY: Breath sounds equal bilaterally. No accessory muscle use. GASTROINTESTINAL: Abdomen soft, non-tender, nondistended. MUSCULOSKELETAL: No cyanosis, or edema. BACK: Nontender without obvious deformity. No CVA tenderness. Procedures none A/P Problem List: (1) Ischemic stroke ICD Code: I63.9 - Cerebral infarction, unspecified Status: Acute (2) HTN (hypertension) ICD Code: I10 - Essential (primary) hypertension Status: Chronic (3) HLD (hyperlipidemia) ICD Code: E78.5 - Hyperlipidemia, unspecified Status: Chronic (4) Asthma ICD Code: J45.909 - Unspecified asthma, uncomplicated Status: Chronic (5) Hypokalemia ICD Code: E87.6 - Hypokalemia Status: Acute Assessment and Plan 61-year-old female with Acute ischemic stroke Resolved status post TPA Continue with aspirin and Plavix Appreciate input from neurology Discussed with cardiology 04/17/17. She will need outpatient follow-up with her own cardiology for further evaluation 2-D echo with EF 60-65% PT/OT to treat and eval Asthma Allergic rhinitis Albuterol every 2 hours as needed for wheezing. Budesonide 0.5 twice a day Hypertension Hyperlipidemia History of coronary vasospasm with prior negative cardiac catheterization 02/2003 Continue with HCTZ 25 mg by mouth daily, atorvastatin 20 mg by mouth daily at bedtime, verapamil 180 mg by mouth daily at bedtime. Hypokalemia Replace electrolyte and monitor Eosinophilia Monitor for bleeding status post TPA. PROPH: SCDs for DVT prophylaxis. No pharmacology DVT prophylaxis for 24 hours after TPA. Famotidine 20 mg IV every 12 hours for stress ulcer prophylaxis. Demetrius Javier MD Apr 26, 2017 10:55
--- NOTE | 2017-04-26 10:57 | HHI.DS ---
Discharge Summary Admission Date Apr 22, 2017 at 23:43 Discharge Date: Apr 26, 2017 Admitting Diagnosis Stroke alert s/p TPA (1) Ischemic stroke ICD Code: I63.9 - Cerebral infarction, unspecified Status: Acute (2) HTN (hypertension) ICD Code: I10 - Essential (primary) hypertension Status: Chronic (3) HLD (hyperlipidemia) ICD Code: E78.5 - Hyperlipidemia, unspecified Status: Chronic (4) Asthma ICD Code: J45.909 - Unspecified asthma, uncomplicated Status: Chronic (5) Hypokalemia ICD Code: E87.6 - Hypokalemia Status: Acute Procedures none Brief History - From Admission 61 yo Right hand dominant AAF with medical history of hypertension and hyperlipidemia who presented to [facility] with acute onset of aphasia, L sided facial tingling, and L hemiparesis at 9:30 pm on 04/22. No fall or seizure. She was on ASA but no anticoagulants. Stroke alert was called. CT brain was negative. NIH stroke score 6. TPA was initiated at 2300 on 04/22. She denies any prior issues with bleeding. TPA has been completed upon my evaluation and patient states her speech and L sided weakness is significantly improved. Denies headache, neck pain, chest pain, GI bleeding, nausea, vomiting, abdominal pain. Remainder review of systems negative CBC/BMP: 04/24/17 0400 04/25/17 0429 Significant Findings Laboratory Tests Test 04/24/17 04:00 04/25/17 04:29 Eosinophils (%) (Auto) 11.0 % (0.0-4.0) Eosinophils # (Auto) 1.0 TH/MM3 (0-0.4) Calcium Level 8.3 MG/DL (8.5-10.1) Potassium Level 3.2 MEQ/L (3.5-5.1) Imaging Last Impressions Head CT 04/23/17 2300 Signed Impressions: Service Date/Time: Sunday, April 23, 2017 23:12 - CONCLUSION: Normal examination. No significant change has occurred. Joel Shea MD Brain MRI 04/23/17 0000 Signed Impressions: Service Date/Time: Sunday, April 23, 2017 09:29 - CONCLUSION: No acute intracranial findings Bakari Ortgea MD Neck CTA [id number] Signed Impressions: Service Date/Time: Saturday, April 22, 2017 23:05 - CONCLUSION: Normal examination for a patient of this age. Joel Shea MD Head CTA [id number] Signed Impressions: Service Date/Time: Saturday, April 22, 2017 23:05 - CONCLUSION: Normal examination for a patient of this age. Joel Shea MD PE at Discharge GENERAL: NAD SKIN: Warm and dry. HEAD: Normocephalic. EYES: No scleral icterus. No injection or drainage. NECK: Supple, trachea midline. No JVD or lymphadenopathy. CARDIOVASCULAR: Regular rate and rhythm without murmurs, gallops, or rubs. RESPIRATORY: Breath sounds equal bilaterally. No accessory muscle use. GASTROINTESTINAL: Abdomen soft, non-tender, nondistended. MUSCULOSKELETAL: No cyanosis, or edema. BACK: Nontender without obvious deformity. No CVA tenderness. Hospital Course She admitted as a stroke alert diagnosed with ischemic CVA for which she was treated with TPA with consultation to neurology. PT/OT consulted. Initially on the care of critical care medicine, permissive hypertension was allowed which was subsequently discontinued. Patient's home medications were resumed. She was started on Plavix and aspirin 48 hour post TPA. He was consulted however is recommended patient follow-up with outpatient cardiology for further evaluation for monitoring of possible proximal A. fib. Prior to discharge, patient's condition improved Pt Condition on Discharge: Stable Discharge Disposition: Discharge Home Discharge Time: > 30 minutes Discharge Instructions DIET: Follow Instructions for: Heart Healthy Diet Activities you can perform: Regular-No Restrictions Follow up Referrals: Cardiology Neurology PCP Follow-up - 1 Week New Medications: Aspirin (Aspirin) 325 Mg Tab 325 MG PO DAILY for Prevent Blood Clot, #30 TAB 3 Refills Clopidogrel (Plavix) 75 Mg Tab 75 MG PO DAILY for Prevent Blood Clot, #30 TAB 3 Refills Continued Medications: Albuterol 8.5 GM Inh (Proair Hfa 8.5 GM Inh) 90 Mcg/Act Aer 2 PUFF INH Q4-6H PRN for SHORTNESS OF BREATH, #1 INHALER 0 Refills 108 mcg/actuation Atorvastatin (Atorvastatin) 20 Mg Tab 20 MG PO HS for Cholesterol Management, #30 TAB 0 Refills Budesonide Powder Inh (Pulmicort Flexhaler) 90 Mcg/Act Inhp 90 MCG INH Q12HR for Asthma Management, #1 INHALER 0 Refills Cholecalciferol (Vitamin D3) 5,000 Unit Cap 5000 UNITS PO DAILY for Nutritional Supplement, #30 CAP 0 Refills Hydrochlorothiazide (Hydrochlorothiazide) 25 Mg Tab 25 MG PO DAILY, #30 TAB 0 Refills Isosorbide Mononitrate ER (Isosorbide Mononitrate ER) 30 Mg Luc 30 MG PO DAILY for Prevent Chest Pain, #30 TAB 0 Refills Loratadine (Claritin) 5 Mg Chew 5 MG CHEW DAILY PRN for ALLERGIES, TAB 0 Refills Multiple Vitamin (Multiple Vitamin) 1 Tab 1 TAB PO DAILY for Nutritional Supplement, TAB 0 Refills Nitroglycerin SL (Nitrostat SL) 0.4 Mg Subl 0.4 MG SL DIRECTED PRN for CHEST PAIN, #100 TAB.SL 0 Refills 1 tablet under the tongue as needed for chest pain. Repeat every 5 minutes for a total of 3 DOSES or call 911 if NO relief. Potassium Chloride ER (Potassium Chloride ER) 20 Meq Tab 20 MEQ PO BID for Electrolyte Replacement, #60 TAB 0 Refills Verapamil ER 24 HR (Verelan PM 24 HR) 100 Mg Cap 180 MG PO HS, #30 CAP 0 Refills Discontinued Medications: Aspirin (Aspirin Low Dose) 81 Mg Chew 81 MG CHEW DAILY, TAB 0 Refills Demetrius Javier MD Apr 26, 2017 10:57
[2017-04-26 11:47] VITALS: BP 133/78; PULSE 77; RESP 20; TEMP 98.5; O2SAT 97
== END 2017-04-26 12:32 | disposition home or self-care (01) | DRG 62 ==
LOC: NEPC 21:53 → NEDA 23:43 → N03B 04-23 01:05 → N05B 04-25 12:59
PROVIDERS: ADMIT Hospitalist; ATTEND Hospitalist
DX: I63.9 Cerebral infarction, unspecified (principal); G81.94 Hemiplegia, unspecified affecting left nondominant side; D72.1 Eosinophilia; R47.01 Aphasia; I48.0 Paroxysmal atrial fibrillation; I10 Essential (primary) hypertension; Z79.82 Long term (current) use of aspirin; E78.5 Hyperlipidemia, unspecified; J45.909 Unspecified asthma, uncomplicated; E87.6 Hypokalemia
CPT/HCPCS: 51702; 70450; 70496; 70498; 70553; 80048; 80061; 80307; 81001; 82435; 82550; 82565; 82947; 84132; 84295; 84484; 84520; 85025; 85384; 85610; 85730; 86850; 86900; 86901; 87641; 90686; 93005; 93306; 94640; 94664; 96365; A9579; J3480; J7030; J7050; J7613; J7626; Q2038; Q9967

== ENCOUNTER 2017-12-05 10:00 | Emergency (ER) | payer OTHER ==
[~2017-12-05] VITALS: Ht 157.5 cm; Wt 103.5 kg
[~2017-12-05 10:00] MED LIST changes: -ALBU6.7H INH; +ALBUAER3 INH; +ASPI-183 PO; -ASPI81 PO; +ATOR20TA15 PO; -ATOR20TA42 PO; -CETI5TAB2 PO; +CHOL5000 PO; -CROM5.2S; -D32000TA PO; -HYDR-2768 PO; -HYDR-3533 PO; +HYDR25TA5 PO; -KCL20 PO; +LORA1CHW2 CHEW; +MULTTAB67 PO; +PLAV75TA29 PO; +POTA-163 PO; -PULM200A INH; +PULM90IN INH; -TAB-TAB PO; -VERA120T3 PO; +VERA1CAP PO; -ZOFR4TAB3 SL
[2017-12-05 10:10] VITALS: PULSE 80; RESP 18; TEMP 97.4
[2017-12-05 10:26] VITALS: O2SAT 99
[2017-12-05 10:40] LABS: BASOPHIL # 0.1 TH/MM3 (0-0.2); BASOPHIL % 0.6 % (0.0-2.0); EOSINOPHIL # 0.7 TH/MM3 (0-0.4); HEMATOCRIT 39.3 % (35.0-46.0); LYMPH % 16.5 % (9.0-44.0); LYMPHOCYTE # 1.5 TH/MM3 (1.0-4.8); MEAN CELL VOLUME 91.1 FL (80.0-100.0); MEAN CORPUSCULAR HEMOGLOBIN 30.2 PG (27.0-34.0); MEAN CORPUSCULAR HGB CONC 33.1 % (32.0-36.0); MEAN PLATELET VOLUME 8.6 FL (7.0-11.0); MONO % 7.9 % (0.0-8.0); MONOCYTE # 0.7 TH/MM3 (0-0.9); PLATELET COUNT 219 TH/MM3 (150-450); RED BLOOD COUNT 4.32 MIL/MM3 (4.00-5.30); WHITE BLOOD COUNT 8.9 TH/MM3 (4.0-11.0)
[2017-12-05] MEDS ORDERED: APIX5TAB PO (10:40)
[2017-12-05] MEDS ORDERED: DULE200A INH (10:40)
[2017-12-05] MEDS ORDERED: ASPI81CH6 CHEW (10:40)
[2017-12-05 10:49] LABS: INTERNATIONAL NORMALIZED RATIO 1.1 RATIO; PROTHROMBIN TIME - PATIENT 11.4 SEC (9.8-11.6)
[2017-12-05 11:06] LABS: BICARBONATE 30.1 MEQ/L (21.0-32.0); BLOOD UREA NITROGEN 14 MG/DL (7-18); CALCIUM 8.8 MG/DL (8.5-10.1); CHLORIDE 103 MEQ/L (98-107); CREATININE 0.89 MG/DL (0.50-1.00); GLOMERULAR FILTRATION RATE 78 ML/MIN (>89); GLUCOSE,RANDOM 80 MG/DL (74-106); SODIUM (NA) 139 MEQ/L (136-145)
[2017-12-05 11:10] LABS: TROPONIN I LESS THAN 0.02 NG/ML (0.02-0.05)
--- NOTE | 2017-12-05 11:17 | RADRPT ---
EXAM DATE/TIME: 12/05/2017 10:28 [place] COMPARISON: No previous studies available for comparison. INDICATIONS : Chest pains with pressure. MEDICAL HISTORY : Hypertension. Myocardial infarction. SURGICAL HISTORY : None. ENCOUNTER: Initial ACUITY: 1 day PAIN SCORE: 5/10 LOCATION: Bilateral chest FINDINGS: A single view of the chest demonstrates mild elevation of the right hemidiaphragm. There is some atel ectatic changes in the left lung base. It size is prominent the one compensated. Degenerative spurrin g of the dorsal spine. CONCLUSION: 1. Mild elevation of the right hemidiaphragm. 2. Left basilar atelectasis/early infiltrate. 3. Compensated cardiomegaly Negro Hsu MD on December 05, 2017 at 11:12 Board Certified Radiologist. This report was verified electronically.
[2017-12-05] MEDS ORDERED: ONDANSETRON HCL 4 MG/2 ML VIAL IV PUSH PRN (11:45)
[2017-12-05] MEDS ORDERED: TEMAZEPAM 15 MG CAP PO PRN (11:45)
[2017-12-05] MEDS ORDERED: MORPHINE SULFATE 4 MG/ML INJ IV PUSH PRN (11:45)
[2017-12-05] MEDS ORDERED: NITROGLYCERIN 0.4 MG SL 25 TABS/BTL SL PRN (11:45)
[2017-12-05] MEDS ORDERED: ALPRAZolam 0.25 MG TAB PO PRN (11:45)
[2017-12-05] MEDS ORDERED: SODIUM CHLORIDE 0.9% FLUSH 10 ML FLUSH IV FLUSH PRN (11:45)
[2017-12-05] MEDS ORDERED: ACETAMINOPHEN/HYDROcodone 325 MG/7.5 MG TAB PO PRN (11:45)
[2017-12-05] MEDS ORDERED: AZIT250T3 PO ×2 (11:56→11:57)
--- NOTE | 2017-12-05 11:58 | PD ---
HPI Chief Complaint: Chest Pain Time Seen by Provider: 10:45 Travel History International Travel<30 days: No Contact w/Intl Traveler<30days: No Traveled to known affect area: No History of Present Illness HPI 62-year-old female complains of chest soreness. Started this morning while she was performed for work. She reports dyspnea on exertion and worsening chest pain on exertion. At the worst it was 5/10. 2/10 pain is reported in the ED. She reports a history of hyperlipidemia hypertension stroke. She takes a baby aspirin daily. There is a positive family history coronary artery disease mother and father side. Patient reports a history of A. fib. She also notes hypertension yesterday her primary care office and followed up with Dr. Gonzalez cardiology is planning to do a Holter monitor as well as a echocardiogram and a nuclear medicine stress test. PFSH Past Medical History Hx Anticoagulant Therapy: Yes Arthritis: Yes Asthma: Yes Heart Rhythm Problems: Yes Cancer: No Cardiac Catheterization: Yes (2002) Cardiovascular Problems: Yes High Cholesterol: Yes Chest Pain: Yes Cerebrovascular Accident: Yes (this admit 03/2017) Diminished Hearing: No Endocrine: No Hypertension: Yes Immune Disorder: No Neurologic: No Psychiatric: No Reproductive: No Respiratory: Yes Menopausal: Yes Past Surgical History Gynecologic Surgery: Yes (c- section ) Hysterectomy: Yes (PARTIAL) Tonsillectomy: Yes Social History Alcohol Use: Yes (OCC) Tobacco Use: No Substance Use: No Allergies-Medications (Allergen,Severity, Reaction): Coded Allergies: hydrocodone (Unverified Allergy, Intermediate, Nausea/Vomiting, 12/05/17) isosorbide (Unverified Allergy, Unknown, 12/05/17) DENIES naproxen (Unverified Allergy, Unknown, UNKNOWN, PT FORGETS, 12/05/17) Reported Meds & Prescriptions Reported Meds & Active Scripts Active Reported Aspirin Low Dose (Aspirin) 81 Mg Chew 81 Mg CHEW DAILY Dulera 120 Act Inh (Mometasone-Formoterol 120 Act Inh) 200-5 Mcg/Act Inh 2 Puff INH BID Eliquis (Apixaban) 5 Mg Tab 5 Mg PO BID Claritin (Loratadine) 5 Mg Chew 5 Mg CHEW DAILY PRN Vitamin D3 (Cholecalciferol) 5,000 Unit Cap 5,000 Units PO DAILY Multiple Vitamin 1 Tab 1 Tab PO DAILY Proair Hfa 8.5 GM Inh (Albuterol Sulfate) 90 Mcg/Act Aer 2 Puff INH Q4-6H PRN 108 mcg/actuation Pulmicort Flexhaler (Budesonide Powder Inh) 90 Mcg/Act Inhp 90 Mcg INH Q12HR Nitrostat SL (Nitroglycerin) 0.4 Mg Subl 0.4 Mg SL DIRECTED PRN 1 tablet under the tongue as needed for chest pain. Repeat every 5 minutes for a total of 3 DOSES or call 911 if NO relief. Isosorbide Mononitrate ER (Isosorbide Mononitrate) 30 Mg Luc 30 Mg PO DAILY Potassium Chloride ER (Potassium Chloride) 20 Meq Tab 20 Meq PO BID Hydrochlorothiazide 25 Mg Tab 25 Mg PO DAILY Atorvastatin (Atorvastatin Calcium) 20 Mg Tab 20 Mg PO HS Verelan PM 24 HR (Verapamil HCl) 100 Mg Cap 180 Mg PO HS Review of Systems Except as stated in HPI: all other systems reviewed are Neg General / Constitutional: No: Fever Physical Exam Narrative GENERAL: 62 yo F, WNWD, no acute distress Blood pressure upon arrival was about 105/78 The blood pressure at 11:30 AM was 150/70 Vital Signs Date Time Temp Pulse Resp B/P (MAP) Pulse Ox O2 Delivery O2 Flow Rate FiO2 12/05/17 10:26 99 Room Air 12/05/17 10:26 99 Room Air 12/05/17 10:14 79 20 98 Room Air 12/05/17 10:10 97.4 80 18 SKIN: Warm and dry. HEAD: Atraumatic. Normocephalic. EYES: Pupils equal and round. No scleral icterus. No injection or drainage. ENT: No nasal bleeding or discharge. Mucous membranes pink and moist. NECK: Trachea midline. No JVD. CARDIOVASCULAR: Regular rate and rhythm. RESPIRATORY: No accessory muscle use. Clear to auscultation. Breath sounds equal bilaterally. GASTROINTESTINAL: Abdomen soft, non-tender, nondistended. Hepatic and splenic margins not palpable. MUSCULOSKELETAL: Extremities without clubbing, cyanosis, or edema. No obvious deformities. NEUROLOGICAL: Awake and alert. No obvious cranial nerve deficits. Motor grossly within normal limits. Five out of 5 muscle strength in the arms and legs. Normal speech. PSYCHIATRIC: Appropriate mood and affect; insight and judgment normal. Data Data Last Documented VS Vital Signs Date Time Temp Pulse Resp B/P (MAP) Pulse Ox O2 Delivery O2 Flow Rate FiO2 5/10/18 10:26 99 Room Air 12/05/17 10:14 79 20 12/05/17 10:10 97.4 Orders Orders Electrocardiogram (12/05/17 10:16) Complete Blood Count With Diff (12/05/17 10:16) Basic Metabolic Panel (Bmp) (12/05/17 10:16) Ckmb (Isoenzyme) Profile (12/05/17 10:16) Troponin I (12/05/17 10:16) Chest, Single Ap (12/05/17 10:16) Iv Access Insert/Monitor (12/05/17 10:16) Ecg Monitoring (12/05/17 10:16) Oxygen Administration (12/05/17 10:16) Oximetry (12/05/17 10:) Act Partial Throm Time (Ptt) (12/05/17 10:23) Prothrombin Time / Inr (Pt) (12/05/17 10:23) Activity Bed Rest With Brp (12/05/17 11:45) Vital Signs (Adult) Q4H (12/05/17 11:45) Cardiac Rhythm .As Directed (12/05/17 11:45) Notify Dr: Other .PRN (12/05/17 11:45) Notify Dr. Parameters (12/05/17 11:45) Resp Oxygen Nasal Cannula (12/05/17 ) Ckmb (Isoenzyme) Profile (12/05/17 11:45) Ckmb (Isoenzyme) Profile (12/05/17 14:45) Troponin I (12/05/17 11:45) Troponin I (12/05/17 14:45) Electrocardiogram (12/05/17 11:45) Electrocardiogram (12/05/17 14:45) ^ Obtain (12/05/17 11:45) Sodium Chloride 0.9% Flush (Ns Flush) (12/05/17 11:45) Sodium Chloride 0.9% Flush (Ns Flush) (12/05/17 21:00) Acetamin-Hydrocod 325-7.5 Mg ([place] 7.5 (12/05/17 11:45) Morphine Inj (Morphine Inj) (12/05/17 11:45) Ondansetron Inj (Zofran Inj) (12/05/17 11:45) Nitroglycerin Sl (Nitrostat Sl) (12/05/17 11:45) Aspirin (Aspirin) (12/06/17 09:00) Temazepam (Restoril) (12/05/17 11:45) Alprazolam (Xanax) (12/05/17 11:45) Washer Machine / Telemetry LAUREN.Q8H (12/05/17 11:45) Admit Order (Ed Use Only) (12/05/17 11:45) Labs Laboratory Tests Test 12/05/17 10:21 White Blood Count 8.9 TH/MM3 Red Blood Count 4.32 MIL/MM3 Hemoglobin 13.0 GM/DL Hematocrit 39.3 % Mean Corpuscular Volume 91.1 FL Mean Corpuscular Hemoglobin 30.2 PG Mean Corpuscular Hemoglobin Concent 33.1 % Red Cell Distribution Width 16.0 % Platelet Count 219 TH/MM3 Mean Platelet Volume 8.6 FL Neutrophils (%) (Auto) 67.0 % Lymphocytes (%) (Auto) 16.5 % Monocytes (%) (Auto) 7.9 % Eosinophils (%) (Auto) 8.0 % Basophils (%) (Auto) 0.6 % Neutrophils # (Auto) 6.0 TH/MM3 Lymphocytes # (Auto) 1.5 TH/MM3 Monocytes # (Auto) 0.7 TH/MM3 Eosinophils # (Auto) 0.7 TH/MM3 Basophils # (Auto) 0.1 TH/MM3 CBC Comment DIFF FINAL Differential Comment Prothrombin Time 11.4 SEC Prothromb Time International Ratio 1.1 RATIO Activated Partial Thromboplast Time 32.2 SEC Blood Urea Nitrogen 14 MG/DL Creatinine 0.89 MG/DL Random Glucose 80 MG/DL Calcium Level 8.8 MG/DL Sodium Level 139 MEQ/L Potassium Level 3.6 MEQ/L Chloride Level 103 MEQ/L Carbon Dioxide Level 30.1 MEQ/L Anion Gap 6 MEQ/L Estimat Glomerular Filtration Rate 78 ML/MIN Total Creatine Kinase 89 U/L Troponin I LESS THAN 0.02 NG/ML MDM Medical Decision Making Medical Screen Exam Complete: Yes Emergency Medical Condition: Yes Medical Record Reviewed: Yes Differential Diagnosis NSTEMI, unstable angina, coronary vasospasm, PE, PTX, aortic dissection, pericarditis, myocarditis, endocarditis, PNA, esophageal disease, aneurysm, musculoskeletal etiologies, anxiety, cocaine/sympathomimetic abuse Narrative Course CBC & BMP Diagram 12/05/17 10:21 Calcium Level 8.8 EKG shows sinus rhythm with a rate of 80, supraventricular complexes noted, no acute ischemic injury pattern present. Chest x-ray is unremarkable Last Impressions Chest X-Ray 12/05/17 1016 Signed Impressions: Service Date/Time: , December 05, 2017 10:28 - CONCLUSION: 1. Mild elevation of the right hemidiaphragm. 2. Left basilar atelectasis/early infiltrate. 3. Compensated cardiomegaly Negro Hsu MD Overall presentation is somewhat concerning for coronary artery disease. Note is taken of the possible left base density. Azithromycin prescription. The patient will otherwise go home with azithromycin prescription. In this scenario provocative coronary evaluation is considered most appropriate except. Case discussed with Dr. Castillo cardiology, the patient's data integrity consultant, who asked for a repeat troponin and discharge. In keeping with the patient's data integrity consultant's preference repeat troponin added with plan for discharge after results if unchanged. The repeat troponin is also undetectable and the patient will be discharged. Diagnosis Primary Impression: Chest pain Qualified Codes: R07.9 - Chest pain, unspecified Additional Impression: Infiltrate of lung present on imaging of chest Admitting Information Admitting Physician Requests: Observation Referrals: Dick Gonzalez MD 2 days Med/Other Pt SpecificInfo: Prescription(s) given Disposition: 01 DISCHARGE HOME Condition: Stable Rafita Alegria MD December 05, 2017 11:58
[2017-12-05] MEDS ORDERED: AZITHROMYCIN 250 MG TAB PO ONE (12:00)
[2017-12-05 13:56] LABS: TROPONIN I LESS THAN 0.02 NG/ML (0.02-0.05)
[2017-12-05 15:16] VITALS: BP 150/82
--- NOTE | 2017-12-05 19:42 | EKG ---
Date Performed: 12/05/2017 Time Performed: 10:12:50 PTAGE: 62 years EKG: Sinus rhythm WITH OCCASIONAL VENTRICULAR PREMATURE COMPLEXES BORDERLINE ECG Since the PREVIOUS TRACING , no significant change noted PREVIOUS TRACIN04/23/2017 08.00 DOCTOR: Franklyn Burger Interpretating Date/Time 12/05/2017 19:42:00
[2017-12-05] MEDS ORDERED: SODIUM CHLORIDE 0.9% FLUSH 10 ML FLUSH IV FLUSH SCH (21:00)
[2017-12-06] MEDS ORDERED: ASPIRIN 325 MG TAB PO SCH (09:00)
== END 2017-12-05 15:16 | disposition home or self-care (01) ==
LOC: NEPE 10:00 → NEDA 11:47 → UNDOADMOB 11:47 → NEPE 15:16
DX: R07.9 Chest pain, unspecified (principal); R91.8 Other nonspecific abnormal finding of lung field; R06.00 Dyspnea, unspecified; R94.31 Abnormal electrocardiogram [ECG] [EKG]; I10 Essential (primary) hypertension; E78.5 Hyperlipidemia, unspecified; I48.91 Unspecified atrial fibrillation; J45.909 Unspecified asthma, uncomplicated; Z79.01 Long term (current) use of anticoagulants; Z87.39 Personal history of other diseases of the musculoskeletal system and connective tissue; Z86.79 Personal history of other diseases of the circulatory system
CPT/HCPCS: 71045; 80048; 82550; 84484; 85025; 85610; 85730; 93005; 99284